=== PATIENT | male | born 1960 | race Caucasian/White ===

== ENCOUNTER 2016-09-09 19:31 | Emergency (ER) | payer BC ==
[~2016-09-09] VITALS: Ht 185.4 cm; Wt 132.0 kg
[~2016-09-09 19:31] MED LIST: ALLO100T PO; ASPI81CH CHEW; CYMB60CA PO; FENO48TA PO; GLIM1TAB PO; LORA-361 PO; LOSA25TA PO; METO25TA3 PO; PRAS10TA PO; PROT40TA PO; PROZ40CA PO; TRIA40P IA
[2016-09-09 19:36] VITALS: BP 141/76; PULSE 82; RESP 16; TEMP 98.3; O2SAT 97
--- NOTE | 2016-09-09 20:00 | PD ---
HPI Chief Complaint: Complaint Time Seen by Provider: 19:49 Travel History International Travel<30 days: No Contact w/Intl Traveler<30days: No Traveled to known affect area: No History of Present Illness HPI The patient is a 56-year-old male, frequent visitor to this emergency department , who states he found a tiny bug in his underwear this evening. He did not bring it in set it was very small and he did not think it looked like a tic. He has not been sexually active since 2012. He has had some slight groin itching. He does have a history of anxiety, bipolar disorder, depression, non- insulin-dependent diabetes, migraines and coronary artery disease. He states the bug looked dark and not like a bedbug. PFSH Past Medical History Hx Anticoagulant Therapy: No Arthritis: Yes (BL hips and knees) Asthma: No Autoimmune Disease: No Bipolar Disorder: Yes Anxiety: Yes Depression: Yes Heart Rhythm Problems: No Cancer: No Cardiac Catheterization: Yes Cardiovascular Problems: Yes ([place], STENTS) High Cholesterol: Yes Chemotherapy: No Chest Pain: Yes Congestive Heart Failure: No COPD: No Cerebrovascular Accident: No Coronary Artery Disease: Yes Diabetes: Yes Patient Takes Glucophage: Yes Diminished Hearing: No Endocrine: No Gastrointestinal Disorders: Yes (GERD) GERD: Yes Genitourinary: No Hepatitis: No Hiatal Hernia: Yes (Umbilical) Hypertension: Yes Immune Disorder: No Implanted Vascular Access Dvce: Yes Musculoskeletal: Yes (Neck pain) Neurologic: Yes (Neuropathy) Psychiatric: Yes (DEPRESSION) Reproductive: No Respiratory: Yes (PNAx2) Immunizations Current: No Migraines: Yes (once a month) Myocardial Infarction: Yes Seizures: No Thyroid Disease: No Ulcer: No ?: Not Past Surgical History Abdominal Surgery: Yes (Inguinal and umbilical hernia, gallbladder removed) AICD: No Body Medical Devices: cardiac stents Cardiac Surgery: Yes (five STENTS) Cholecystectomy: Yes Coronary Stent: Yes (X's 3) Ear Surgery: No Endocrine Surgery: No Eye Surgery: No Genitourinary Surgery: No Gynecologic Surgery: No Joint Replacement: No Oral Surgery: Yes (DENTAL EXTRACTION, tonsillectomy) Pacemaker: No Tonsillectomy: Yes Other Surgery: Yes (Cyst removed posterior neck) Family History Family Myocardial Infarction: Yes (brother ) Social History Alcohol Use: Yes (RARE) Tobacco Use: Yes (1 PPD) 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) Allergies-Medications (Allergen,Severity, Reaction): Coded Allergies: Lortab (Verified Allergy, Severe, Itching at high doses, 09/09/16) Penicillin (Verified Allergy, Severe, Anaphylaxis, 09/09/16) Codeine (Verified Allergy, Intermediate, Nose itches, 09/09/16) HMG-CoA Reductase Inhibitors (Verified Adverse Reaction, Severe, Back pain , muscle cramps, 09/09/16) Sulfa (Verified Adverse Reaction, Severe, Sores in mouth, 09/09/16) Reported Meds & Prescriptions Reported Meds & Active Scripts Active Effient (Prasugrel) 10 Mg Tab 10 Mg PO DAILY Metoprolol Tartrate 25 Mg Tab 25 Mg PO Q12HR Fenofibrate 48 Mg Tab 48 Mg PO DAILY Aspirin 81 Mg Chew 81 Mg CHEW DAILY Claritin (Loratadine) 10 Mg Tab 10 Mg PO DAILY Reported Allopurinol 100 Mg Tab Unknown Dose PO DAILY Losartan (Losartan Potassium) 25 Mg Tab Unknown Dose PO DAILY Prozac (Fluoxetine HCl) 40 Mg Cap 40 Cap PO DAILY Protonix (Pantoprazole Sodium) 40 Mg Tab 40 Mg PO DAILY Glimepiride 1 Mg Tab 1 Mg PO BID Take with breakfast or first main meal Cymbalta DR (Duloxetine HCl) 60 Mg Capdr 60 Mg PO DAILY Review of Systems Except as stated in HPI: all other systems reviewed are Neg Physical Exam Narrative GENERAL: Well-nourished, well-developed patient. SKIN: Warm and dry. The skin around the groin shows a folliculitis. There is one pustule there which may have been the result of a folliculitis initially but this appears to be a staph infection. It does not appear to be a bite. There is no evidence of scabies or pubic lice. HEAD: Normocephalic. EYES: No scleral icterus. No injection or drainage. NECK: Supple, trachea midline. No JVD or lymphadenopathy. CARDIOVASCULAR: Regular rate and rhythm without murmurs, gallops, or rubs. RESPIRATORY: Breath sounds equal bilaterally. No accessory muscle use. GASTROINTESTINAL: Abdomen soft, non-tender, nondistended. MUSCULOSKELETAL: No cyanosis, or edema. BACK: Nontender without obvious deformity. No CVA tenderness. Data Data Last Documented VS Vital Signs Date Time Temp Pulse Resp B/P Pulse Ox O2 Delivery O2 Flow Rate FiO2 09/09/16 19:36 98.3 82 16 141/76 97 MDM Medical Decision Making Medical Screen Exam Complete: Yes Emergency Medical Condition: Yes Medical Record Reviewed: Yes Differential Diagnosis Staph infection, scabies, bedbugs, pubic lice, neurodermatitis, conversion reaction, folliculitis Narrative Course The patient appears to have a folliculitis and I cannot see any evidence of any parasites. Plan: The patient is given a Betadine cleansing solution, he is to use 1 teaspoon and a large glass of water when he uses this. He can scrub his groin with this. Hopefully this will get rid of the staff and folliculitis problem. Diagnosis Primary Impression: Folliculitis barbae Additional Impression: Staphylococcal infection of skin Additional Instructions: Scrub once daily with this Betadine solution and the should get rid of the staff infection in the groin. Follow-up with her primary care physician next week. Med/Other Pt SpecificInfo: No Change to Meds Disposition: 01 DISCHARGE HOME Condition: Stable Mello Rush MD Sep 09, 2016 20:00
== END 2016-09-09 20:24 | disposition home or self-care (01) ==
LOC: PHED 19:31
DX: L73.8 Other specified follicular disorders (principal); L08.9 Local infection of the skin and subcutaneous tissue, unspecified; B95.8 Unspecified staphylococcus as the cause of diseases classified elsewhere; B85.3 Phthiriasis; E11.9 Type 2 diabetes mellitus without complications; I25.10 Atherosclerotic heart disease of native coronary artery without angina pectoris; I10 Essential (primary) hypertension; E78.00 Pure hypercholesterolemia, unspecified; F17.200 Nicotine dependence, unspecified, uncomplicated; Z79.84 Long term (current) use of oral hypoglycemic drugs; Z86.59 Personal history of other mental and behavioral disorders; Z86.79 Personal history of other diseases of the circulatory system; Z86.69 Personal history of other diseases of the nervous system and sense organs; Z87.39 Personal history of other diseases of the musculoskeletal system and connective tissue; Z87.19 Personal history of other diseases of the digestive system
CPT/HCPCS: 99282

== ENCOUNTER 2016-10-25 20:54 | Emergency (ER) | payer BC ==
[~2016-10-25] VITALS: Ht 185.4 cm; Wt 130.0 kg
[2016-10-25 21:35] VITALS: BP 125/93; PULSE 98; RESP 18; TEMP 98.6; O2SAT 96
[2016-10-25 22:26] LABS: BLOOD, URINE SMALL (NEG); GLUCOSE,URINE NEG (NEG); KETONE, URINE NEG (NEG); NITRITE,URINE NEG (NEG); PH, URINE 5.5 (5.0-8.5)
[2016-10-25] MEDS ORDERED: LOSA25TA PO (22:28)
[2016-10-25] MEDS ORDERED: ALLO100T PO (22:28)
[2016-10-25] MEDS ORDERED: METO25TA3 PO (22:28)
[2016-10-25] MEDS ORDERED: GLIM1TAB PO (22:28)
[2016-10-25 22:33] LABS: COMMENT (UR) CULT NOT INDICATED; CULTURE IF INDICATED CULT NOT INDICATED; METHOD OF COLLECTION VOIDED; RBC, URINE 0-3 /hpf (0-3); SQUAMOUS EPITHELIAL CELL URINE 0-2 /hpf (0-5); URINE COLOR YELLOW (YELLW/STRAW); WBC, URINE 0-2 /hpf (0-5)
--- NOTE | 2016-10-25 22:37 | PD ---
HPI Chief Complaint: Complaint Time Seen by Provider: 22:28 Travel History International Travel<30 days: No Contact w/Intl Traveler<30days: No Traveled to known affect area: No History of Present Illness HPI This 56-year-old male has been having intermittent left flank pain for the past week or so. He has never had a kidney stone with multiple family members do. For the past week he has been having very sharp severe left flank pain which is quite transient. In between attacks of pain in the [facility] [place] okay and is able to move around. There is no history of back injury. He does have a history of myocardial infarction, diabetes and gout. He is not having pain right now but at night he gets pain which causes him to cry in pain. It seems to get better when he gets up. PFSH Past Medical History Hx Anticoagulant Therapy: No Arthritis: Yes (BL hips and knees) Asthma: No Autoimmune Disease: No Bipolar Disorder: Yes Anxiety: Yes Depression: Yes Heart Rhythm Problems: No Cancer: No Cardiac Catheterization: Yes Cardiovascular Problems: Yes ([place], STENTS) High Cholesterol: Yes Chemotherapy: No Chest Pain: Yes Congestive Heart Failure: No COPD: No Cerebrovascular Accident: No Coronary Artery Disease: Yes Diabetes: Yes Diminished Hearing: No Endocrine: No Gastrointestinal Disorders: Yes (GERD) GERD: Yes Genitourinary: No Hepatitis: No Hiatal Hernia: Yes (Umbilical) Hypertension: Yes Immune Disorder: No Implanted Vascular Access Dvce: Yes Musculoskeletal: Yes (Neck pain) Neurologic: Yes (Neuropathy) Psychiatric: Yes (DEPRESSION) Reproductive: No Respiratory: Yes (PNAx2) Immunizations Current: No Migraines: Yes (once a month) Myocardial Infarction: Yes Seizures: No Thyroid Disease: No Ulcer: No Past Surgical History Abdominal Surgery: Yes (Inguinal and umbilical hernia, gallbladder removed) AICD: No Body Medical Devices: cardiac stents Cardiac Surgery: Yes (five STENTS) Cholecystectomy: Yes Coronary Stent: Yes (X's 3) Ear Surgery: No Endocrine Surgery: No Eye Surgery: No Genitourinary Surgery: No Gynecologic Surgery: No Joint Replacement: No Oral Surgery: Yes (DENTAL EXTRACTION, tonsillectomy) Pacemaker: No Tonsillectomy: Yes Other Surgery: Yes (Cyst removed posterior neck) Social History Alcohol Use: Yes (RARE) Tobacco Use: Yes (1 PPD) 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) Allergies-Medications (Allergen,Severity, Reaction): Coded Allergies: Lortab (Verified Allergy, Severe, Itching at high doses, 10/25/16) Penicillin (Verified Allergy, Severe, Anaphylaxis, 10/25/16) Codeine (Verified Allergy, Intermediate, Nose itches, 10/25/16) HMG-CoA Reductase Inhibitors (Verified Adverse Reaction, Severe, Back pain , muscle cramps, 10/25/16) Sulfa (Verified Adverse Reaction, Severe, Sores in mouth, 10/25/16) Reported Meds & Prescriptions Reported Meds & Active Scripts Active Effient (Prasugrel) 10 Mg Tab 10 Mg PO DAILY Fenofibrate 48 Mg Tab 48 Mg PO DAILY Aspirin 81 Mg Chew 81 Mg CHEW DAILY Reported Metoprolol Tartrate 25 Mg Tab 12.5 Mg PO BID Losartan (Losartan Potassium) 25 Mg Tab 25 Mg PO DAILY Glimepiride 1 Mg Tab 1 Mg PO DAILY Take with breakfast or first main meal Allopurinol 100 Mg Tab 100 Mg PO DAILY Prozac (Fluoxetine HCl) 40 Mg Cap 40 Cap PO DAILY Protonix (Pantoprazole Sodium) 40 Mg Tab 40 Mg PO DAILY Cymbalta DR (Duloxetine HCl) 60 Mg Capdr 60 Mg PO DAILY Review of Systems General / Constitutional: No: Fever, Chills Eyes: No: Diploplia, Blurred Vision HENT: No: Headaches, Vertigo Cardiovascular: No: Chest Pain or Discomfort, Palpitations Respiratory: No: Cough, Shortness of Breath Gastrointestinal: No: Nausea, Vomiting Genitourinary: Positive: Flank Pain, No: Urgency, Frequency Musculoskeletal: No: Myalgias Skin: No Rash Psychiatric: No: Anxiety Physical Exam Narrative GENERAL: Well-developed male SKIN: Warm and dry. HEAD: Atraumatic. Normocephalic. EYES: Pupils equal and round. No scleral icterus. No injection or drainage. ENT: No nasal bleeding or discharge. Mucous membranes pink and moist. NECK: Trachea midline. No JVD. CARDIOVASCULAR: Regular rate and rhythm. No murmur appreciated. RESPIRATORY: No accessory muscle use. Clear to auscultation. Breath sounds equal bilaterally. GASTROINTESTINAL: Abdomen soft, non-tender, nondistended. Hepatic and splenic margins not palpable. MUSCULOSKELETAL: No obvious deformities. No clubbing. No cyanosis. No edema. NEUROLOGICAL: Awake and alert. No obvious cranial nerve deficits. Motor grossly within normal limits. Normal speech. PSYCHIATRIC: Appropriate mood and affect; insight and judgment normal. Data Data Last Documented VS Vital Signs Date Time Temp Pulse Resp B/P Pulse Ox O2 Delivery O2 Flow Rate FiO2 10/25/16 22:20 16 10/25/16 21:35 98.6 98 125/93 96 Orders Urinalysis - C+S If Indicated (10/25/16 21:51) Ct Abd/Pel W/O Iv Contrast (10/25/16 22:28) Labs Laboratory Tests Test 10/25/16 21:40 Urine Collection Type VOIDED Urine Color YELLOW Urine Turbidity CLEAR Urine pH 5.5 Urine Specific [place] 1.021 Urine Protein NEG mg/dL Urine Glucose (UA) NEG mg/dL Urine Ketones NEG mg/dL Urine Occult Blood SMALL Urine Nitrite NEG Urine Bilirubin NEG Urine Leukocyte Esterase NEG Urine RBC 0-3 /hpf Urine WBC 0-2 /hpf Urine Squamous Epithelial 0-2 /hpf Cells Microscopic Urinalysis Comment CULT NOT INDICATED MDM Medical Decision Making Medical Screen Exam Complete: Yes Emergency Medical Condition: Yes Medical Record Reviewed: Yes Differential Diagnosis Differential includes renal colic, musculoskeletal pain, neuralgia Narrative Course Urinalysis is negative for blood. A CT scan does not show any kidney stones. There is some separation of the rectus muscles inferior to the umbilicus where he previously had an umbilical hernia repaired. This is an incidental finding and not related to the pain. Etiology of the pain has not been determined. It is a very sharp brief pain which I don't think would benefit from pain medication. He will be released Diagnosis Primary Impression: musculoskeletal flank pain Additional Instructions: Follow-up with your own medical doctor Disposition: 01 DISCHARGE HOME Condition: Stable Davin Turner MD Oct 25, 2016 22:37
--- NOTE | 2016-10-25 23:22 | RADHPO ---
EXAM DATE/TIME: 10/25/2016 22:47 [facility] COMPARISON: No previous studies available for comparison. INDICATIONS : Intermittent left flank pain. ORAL CONTRAST: No oral contrast ingested. RADIATION DOSE: 23.21 CTDIvol (mGy) MEDICAL HISTORY : Hypertension. Diabetes mellitus type 2. SURGICAL HISTORY : Cholecystectomy. Inguinal hernia repair.Umbilical hernia repair.CABG. ENCOUNTER: Initial ACUITY: 1 week PAIN SCALE: 0/10 LOCATION: Left flank TECHNIQUE: Volumetric scanning of the abdomen and pelvis was performed. Using automated exposure control and ad justment of the mA and/or kV according to patient size, radiation dose was kept as low as reasonably achievable to obtain optimal diagnostic quality images. FINDINGS: LOWER LUNGS: The visualized lower lungs are clear. LIVER: Homogeneous density without lesion for noncontrast technique. There is no dilation of the biliary tr ee. Hemoclips in the osman from prior cholecystectomy.. SPLEEN: Normal size without lesion. PANCREAS: Within normal limits. KIDNEYS: Normal in size and shape. There is no mass, stone, or hydronephrosis. The ureters are normal in dim ension without evidence of calcification. ADRENAL GLANDS: Within normal limits. VASCULAR: There is no aortic aneurysm. BOWEL/MESENTERY: The stomach, small bowel, and colon demonstrate no acute abnormality. Gas is seen in the lumen of th e appendix. There is no free intraperitoneal air or fluid. ABDOMINAL WALL: Multiple metallic screw anchors anterior mid abdominal wall prior umbilical hernia repair. Inferior to the umbilicus, there is separation of the rectus muscles measuring 3.8 cm. There is also mild [place] ration of the subcutaneous fat adjacent to the separation. No protrusion of bowel. RETROPERITONEUM: There is no lymphadenopathy. BLADDER: No wall thickening or mass. REPRODUCTIVE: Within normal limits. INGUINAL: There is no lymphadenopathy or hernia. MUSCULOSKELETAL: Within normal limits for patient age. CONCLUSION: 1. No calcified renal stones or hydronephrosis. 2. Separation of the rectus muscles inferior to the umbilicus with some induration of the superficial subcutaneous fat. Martin Quiroz MD on October 25, 2016 at 23:11 Board Certified Radiologist. This report was verified electronically.
[2016-10-25 23:30] VITALS: BP 150/85; PULSE 92; RESP 16; O2SAT 96
== END 2016-10-25 23:41 | disposition home or self-care (01) ==
LOC: PHED 20:54
DX: R10.9 Unspecified abdominal pain (principal); E11.9 Type 2 diabetes mellitus without complications; M10.9 Gout, unspecified; I25.2 Old myocardial infarction; I10 Essential (primary) hypertension; E78.00 Pure hypercholesterolemia, unspecified; F17.200 Nicotine dependence, unspecified, uncomplicated; Z79.84 Long term (current) use of oral hypoglycemic drugs; Z87.39 Personal history of other diseases of the musculoskeletal system and connective tissue; Z86.79 Personal history of other diseases of the circulatory system; Z87.19 Personal history of other diseases of the digestive system; Z86.69 Personal history of other diseases of the nervous system and sense organs; Z87.09 Personal history of other diseases of the respiratory system; Z86.59 Personal history of other mental and behavioral disorders
CPT/HCPCS: 74176; 81001

== ENCOUNTER 2017-01-31 11:25 | Emergency (ER) | payer SELFPAY ==
[~2017-01-31] VITALS: Ht 185.4 cm; Wt 128.0 kg
[~2017-01-31 11:25] MED LIST changes: -LORA-361 PO
[2017-01-31 11:34] VITALS: BP 156/92; PULSE 92; RESP 16; TEMP 98; O2SAT 95
[2017-01-31] MEDS ORDERED: SODIUM CHLOR 0.9% 1000 ML INJ 1,000 ML IV SCH (12:13)
[2017-01-31] MEDS ORDERED: FAMOTIDINE 20 MG/2 ML VIAL IV PUSH ONE (12:15)
[2017-01-31] MEDS ORDERED: ONDANSETRON HCL 4 MG/2 ML VIAL IVP ONE (12:15)
[2017-01-31] MEDS ORDERED: MORPHINE SULFATE 4 MG/ML INJ IV PUSH ONE (12:15)
[2017-01-31] MEDS ORDERED: SODIUM CHLORIDE 0.9% FLUSH 10 ML FLUSH IV FLUSH PRN (12:15)
[2017-01-31 12:50] LABS: AUTOMATED NEUTROPHIL # 5.5 TH/MM3 (1.8-7.7); BASOPHIL # 0.1 TH/MM3 (0-0.2); BASOPHIL % 1.8 % (0.0-2.0); EOSINOPHIL # 0.2 TH/MM3 (0-0.4); EOSINOPHIL % 2.8 % (0.0-4.0); HEMATOCRIT 45.3 % (39.0-51.0); HEMO FLAGS DIFF FINAL; LYMPH % 24.2 % (9.0-44.0); MEAN CELL VOLUME 88.9 FL (80.0-100.0); MEAN CORPUSCULAR HEMOGLOBIN 30.5 PG (27.0-34.0); MEAN CORPUSCULAR HGB CONC 34.4 % (32.0-36.0); MONO % 3.4 % (0.0-8.0); NEUT % 67.8 % (16.0-70.0); PLATELET COUNT 220 TH/MM3 (150-450); WHITE BLOOD COUNT 8.1 TH/MM3 (4.0-11.0)
[2017-01-31 13:00] LABS: CHLORIDE 104 MEQ/L (98-107); POTASSIUM 4.2 MEQ/L (3.5-5.1); SODIUM (NA) 139 MEQ/L (136-145)
[2017-01-31 13:04] LABS: ANION GAP 10 MEQ/L (5-15); BLOOD UREA NITROGEN 13 MG/DL (7-18)
[2017-01-31 13:06] LABS: APTT (PATIENT) 25.9 SEC (24.3-30.1); INTERNATIONAL NORMALIZED RATIO 0.9 RATIO
[2017-01-31 13:07] LABS: ALT (GPT) 53 U/L (12-78); AST (GOT) 34 U/L (15-37); GLOMERULAR FILTRATION RATE 77 ML/MIN (>89)
[2017-01-31 13:08] LABS: INDIRECT BILIRUBIN 0.4 MG/DL (0.0-0.8); TOTAL BILIRUBIN ADULT 0.5 MG/DL (0.2-1.0)
[2017-01-31 13:10] LABS: ALKALINE PHOSPHATASE 95 U/L (45-117)
[2017-01-31] MEDS ORDERED: IOHEXOL 350 MG/ML 10 ML VIAL (for RAD DIAG) IV ONE (13:26)
--- NOTE | 2017-01-31 13:59 | RADHPO ---
EXAM DATE/TIME: 01/31/2017 13:11 [facility] COMPARISON: CT ABDOMEN & PELVIS W CONTRAST, March 13, 2015, 20:11. INDICATIONS : Mid abdominal pain. Nausea, vomiting and diarrhea. IV CONTRAST: 85 cc Omnipaque 350 (iohexol) IV ORAL CONTRAST: No oral contrast ingested. RADIATION DOSE: 22.20 CTDIvol (mGy) MEDICAL HISTORY : Diabetes mellitus type 2. Myocardial infarction. Gastroesophageal reflux disease.Hypertension. SURGICAL HISTORY : None. ENCOUNTER: Initial ACUITY: 2 months PAIN SCALE: 4/10 LOCATION: Mid abdomen TECHNIQUE: Volumetric scanning of the abdomen and pelvis was performed. Using automated exposure control and ad justment of the mA and/or kV according to patient size, radiation dose was kept as low as reasonably achievable to obtain optimal diagnostic quality images. FINDINGS: The liver is enlarged. Diffuse fatty infiltration of the liver is noted. No focal hepatic mass is not ed. No biliary ductal dilatation is noted. The gallbladder has been resected. The spleen is normal. T he pancreas is also normal. The adrenal glands are normal bilaterally. There is a simple cyst within the upper pole of left kidney measuring 2.1 cm. There is no solid mass or hydronephrosis. No calcifie d renal calculus is noted. The abdominal aorta is calcified but not aneurysmally dilated. The inferio r vena cava is normal. There is no para-aortic, retroperitoneal or mesenteric lymphadenopathy. Small recurrent midline ventral abdominal wall hernia is noted and contains only fat. Uncomplicated colonic diverticulosis is noted. The appendix is normal. The urinary bladder is unremarkable. The prostate g land is normal. Scattered atelectasis is noted within the lung bases posteriorly. Degenerative change s and scoliosis of the thoraco-lumbar spine are noted. CONCLUSION: 1. Small recurrent midline ventral abdominal wall hernia containing only fat. 2. Enlarged fatty liver. 3. Uncomplicated colonic diverticulosis. 4. 2.1 cm upper pole left renal cyst. 5. Degenerative changes and scoliosis of the thoracolumbar spine. 6. Scattered bibasilar atelectasis. Yosef Pulido MD on January 31, 2017 at 13:40 Board Certified Radiologist. This report was verified electronically.
[2017-01-31 14:00] VITALS: BP 143/70; PULSE 75; RESP 18; O2SAT 95
[2017-01-31] MEDS ORDERED: METF500T PO (14:41)
--- NOTE | 2017-01-31 14:41 | PD ---
HPI Chief Complaint: Abdominal Pain Time Seen by Provider: 12:00 Travel History International Travel<30 days: No Contact w/Intl Traveler<30days: No Traveled to known affect area: No History of Present Illness HPI Patient is a 56-year-old male comes in complaining of abdominal pain. He says he lost his job 3 months ago, and has lost his health insurance. Thus, he has not had his diabetes her blood pressure medications. He says the pain is in the middle of his abdomen, and has been going on for 8 weeks. He's had occasional nausea, vomiting occasionally. He denies diarrhea. He has not had any blood in his stool. He denies fever or chills. He does take Protonix, and has been taking extra Protonix, which she says has helped a little bit. He says food usually makes the pain worse. He also reports vomiting after eating. PFSH Past Medical History Hx Anticoagulant Therapy: No Arthritis: Yes (BL hips and knees) Asthma: No Autoimmune Disease: No Bipolar Disorder: Yes Anxiety: Yes Depression: Yes Heart Rhythm Problems: No Cancer: No Cardiac Catheterization: Yes Cardiovascular Problems: Yes (STENTS) High Cholesterol: Yes Chemotherapy: No Chest Pain: Yes Congestive Heart Failure: No COPD: No Cerebrovascular Accident: No Coronary Artery Disease: Yes Diabetes: Yes Patient Takes Glucophage: No Diminished Hearing: No Endocrine: No Gastrointestinal Disorders: Yes (GERD) GERD: Yes Gout: Yes Genitourinary: No Hepatitis: No Hiatal Hernia: Yes (Umbilical) Hypertension: Yes Immune Disorder: No Implanted Vascular Access Dvce: Yes Musculoskeletal: Yes (Neck pain) Neurologic: Yes (Neuropathy,BILAT FEET AND HIPS) Psychiatric: Yes (DEPRESSION) Reproductive: No Respiratory: Yes (PNAx2) Immunizations Current: No Migraines: Yes (once a month) Myocardial Infarction: Yes (07/2016) Seizures: No Thyroid Disease: No Ulcer: No ?: Not Past Surgical History Abdominal Surgery: Yes (Inguinal and umbilical hernia, gallbladder removed) AICD: No Body Medical Devices: cardiac stents Cardiac Surgery: Yes (five STENTS) Cholecystectomy: Yes Coronary Stent: Yes (X's 3) Ear Surgery: No Endocrine Surgery: No Eye Surgery: No Genitourinary Surgery: No Gynecologic Surgery: No Joint Replacement: No Oral Surgery: Yes (DENTAL EXTRACTION, tonsillectomy) Pacemaker: No Tonsillectomy: Yes Other Surgery: Yes (Cyst removed posterior neck) Family History Family Myocardial Infarction: Yes (brother ) Social History Alcohol Use: Yes (VERY RARE) Tobacco Use: Yes (1 PPD) 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) Allergies-Medications (Allergen,Severity, Reaction): Coded Allergies: Lortab (Verified Allergy, Severe, Itching at high doses, 01/31/17) Penicillin (Verified Allergy, Severe, Anaphylaxis, 01/31/17) Codeine (Verified Allergy, Intermediate, Nose itches, 01/31/17) HMG-CoA Reductase Inhibitors (Verified Adverse Reaction, Severe, Back pain , muscle cramps, 01/31/17) Sulfa (Verified Adverse Reaction, Severe, Sores in mouth, 01/31/17) Reported Meds & Prescriptions Reported Meds & Active Scripts Active Effient (Prasugrel) 10 Mg Tab 10 Mg PO DAILY Fenofibrate 48 Mg Tab 48 Mg PO DAILY Aspirin 81 Mg Chew 81 Mg CHEW DAILY Reported Metoprolol Tartrate 25 Mg Tab 12.5 Mg PO BID Losartan (Losartan Potassium) 25 Mg Tab 25 Mg PO DAILY Glimepiride 1 Mg Tab 1 Mg PO DAILY Take with breakfast or first main meal Allopurinol 100 Mg Tab 100 Mg PO DAILY Prozac (Fluoxetine HCl) 40 Mg Cap 40 Cap PO DAILY Protonix (Pantoprazole Sodium) 40 Mg Tab 40 Mg PO DAILY Cymbalta DR (Duloxetine HCl) 60 Mg Capdr 60 Mg PO DAILY Review of Systems Except as stated in HPI: all other systems reviewed are Neg General / Constitutional: No: Fever, Chills HENT: No: Headaches, Lightheadedness Cardiovascular: No: Chest Pain or Discomfort Respiratory: No: Shortness of Breath Gastrointestinal: Positive: Nausea, Vomiting, Abdominal Pain Musculoskeletal: No: Myalgias, Edema, Pain Neurologic: Positive: Weakness, No: Dizziness Physical Exam Narrative GENERAL: Awake and alert, in no acute distress. SKIN: Focused skin assessment warm/dry. HEAD: Atraumatic. Normocephalic. EYES: Pupils equal and round. No scleral icterus. ENT: Mucous membranes pink and moist. NECK: Trachea midline. No JVD. CARDIOVASCULAR: Regular rate and rhythm. No murmur appreciated. RESPIRATORY: No accessory muscle use. Clear to auscultation. Breath sounds equal bilaterally. GASTROINTESTINAL: Abdomen soft, nondistended. Tender to palpation in the mid epigastric area. No rebound or guarding. MUSCULOSKELETAL: No obvious deformities. No clubbing. No cyanosis. No edema. NEUROLOGICAL: Awake and alert. No obvious cranial nerve deficits. Motor grossly within normal limits. Normal speech. PSYCHIATRIC: Appropriate mood and affect; insight and judgment normal. Data Data Last Documented VS Vital Signs Date Time Temp Pulse Resp B/P Pulse Ox O2 Delivery O2 Flow Rate FiO2 01/31/17 14:00 75 18 143/70 95 01/31/17 11:34 98.0 Orders Basic Metabolic Panel (Bmp) (01/31/17 12:13) Complete Blood Count With Diff (01/31/17 12:13) Lipase (01/31/17 12:13) Prothrombin Time / Inr (Pt) (01/31/17 12:13) Act Partial Throm Time (Ptt) (01/31/17 12:13) Ct Abd/Pel W Iv Contrast(Rout) (01/31/17 12:13) Iv Access Insert/Monitor (01/31/17 12:13) Ecg Monitoring (01/31/17 12:13) Oximetry (01/31/17 12:13) Morphine Inj (Morphine Inj) (01/31/17 12:15) Ondansetron Inj (Zofran Inj) (01/31/17 12:15) Sodium Chlor 0.9% 1000 Ml Inj (Ns 1000 M (01/31/17 12:13) Sodium Chloride 0.9% Flush (Ns Flush) (01/31/17 12:15) Electrocardiogram (01/31/17 12:13) Famotidine Inj (Pepcid Inj) (01/31/17 12:15) Troponin I (01/31/17 12:13) Hepatic Functional Panel (01/31/17 12:13) Iohexol 350 Inj (Omnipaque 350 Inj) (01/31/17 13:26) Labs Laboratory Tests Test 01/31/17 12:45 White Blood Count 8.1 TH/MM3 Red Blood Count 5.10 MIL/MM3 Hemoglobin 15.6 GM/DL Hematocrit 45.3 % Mean Corpuscular Volume 88.9 FL Mean Corpuscular Hemoglobin 30.5 PG Mean Corpuscular Hemoglobin 34.4 % Concent Red Cell Distribution Width 12.0 % Platelet Count 220 TH/MM3 Mean Platelet Volume 7.3 FL Neutrophils (%) (Auto) 67.8 % Lymphocytes (%) (Auto) 24.2 % Monocytes (%) (Auto) 3.4 % Eosinophils (%) (Auto) 2.8 % Basophils (%) (Auto) 1.8 % Neutrophils # (Auto) 5.5 TH/MM3 Lymphocytes # (Auto) 2.0 TH/MM3 Monocytes # (Auto) 0.3 TH/MM3 Eosinophils # (Auto) 0.2 TH/MM3 Basophils # (Auto) 0.1 TH/MM3 CBC Comment DIFF FINAL Differential Comment Prothrombin Time 10.0 SEC Prothromb Time International 0.9 RATIO Ratio Activated Partial 25.9 SEC Thromboplast Time Sodium Level 139 MEQ/L Potassium Level 4.2 MEQ/L Chloride Level 104 MEQ/L Carbon Dioxide Level 25.0 MEQ/L Anion Gap 10 MEQ/L Blood Urea Nitrogen 13 MG/DL Creatinine 1.00 MG/DL Estimat Glomerular Filtration 77 ML/MIN Rate Random Glucose 261 MG/DL Calcium Level 8.9 MG/DL Total Bilirubin 0.5 MG/DL Direct Bilirubin 0.1 MG/DL Indirect Bilirubin 0.4 MG/DL Aspartate Amino Transf 34 U/L (AST/SGOT) Alanine Aminotransferase 53 U/L (ALT/SGPT) Alkaline Phosphatase 95 U/L Troponin I LESS THAN 0.02 NG/ML Total Protein 7.2 GM/DL Albumin 3.8 GM/DL Lipase 186 U/L MDM Medical Decision Making Medical Screen Exam Complete: Yes Emergency Medical Condition: Yes Medical Record Reviewed: Yes Differential Diagnosis GERD versus gastritis versus pancreatitis versus ACS (unlikely) versus hyperglycemia Narrative Course Patient is a 56-year-old male who comes in complaining of abdominal pain. Exam shows tenderness and midepigastric area. IV established, labs sent. Labs show a glucose of 261, no other acute abnormalities. CT abdomen and pelvis performed shows no acute abnormalities. Last 24 hours Impressions Abdomen/Pelvis CT 01/31/17 1213 Signed Impressions: Service Date/Time: January 13:11 - CONCLUSION: 1. Small recurrent midline ventral abdominal wall hernia containing only fat. 2. Enlarged fatty liver. 3. Uncomplicated colonic diverticulosis. 4. 2.1 cm upper pole left renal cyst. 5. Degenerative changes and scoliosis of the thoracolumbar spine. 6. Scattered bibasilar atelectasis. Yosef Pulido MD Patient given GI cocktail and morphine. He reports feeling a little better. Patient offered metformin, since it is free of [employer]. He says he has taken this before, but did not like the side effect of the diarrhea, so he was changed to glyburide. He cannot afford the glyburide at this time, so he would like to try the metformin again. He is advised follow-up at the community clinic. Advised to return to the ED as needed for any worsening symptoms. Advised to try [id number] antacids and avoid spicy foods as well as alcohol and cigarettes. Diagnosis Primary Impression: GERD (gastroesophageal reflux disease) Qualified Code: K21.9 - Gastroesophageal reflux disease without esophagitis Additional Impression: Hyperglycemia due to type 2 diabetes mellitus Qualified Code: E11.65 - Type 2 diabetes mellitus with hyperglycemia, without long-term current use of insulin Referrals: [facility] call for appointment [facility] call for appointment Patient Instructions: Diabetic Hyperglycemia (ED), Gastroesophageal Reflux Disease (ED), General Instructions Additional Instructions: Avoid spicy foods, peppers, tomatoes, caffeine, alcohol, cigarettes. Follow up in the community clinic. Try Metformin for your diabetes. Return as needed to the ED for any worsening symptoms. Scripts Metformin 500 Mg [id number] Mg PO BIDPC #60 TAB Ref 0 With meals Prov:Macrina Enriquez MD 01/31/17 Disposition: 01 DISCHARGE HOME Condition: Stable Macrina Enriquez MD Jan 31, 2017 14:41
--- NOTE | 2017-02-01 22:56 | EKG ---
Date Performed: 01/31/2017 Time Performed: 12:20:41 PTAGE: 56 years EKG: Sinus rhythm INDETERMINATE AXIS RIGHT BUNDLE BRANCH BLOCK ABNORMAL ECG PREVIOUS TRACING : 08/07/2016 05.27 DOCTOR: Wojciech Tijerina Interpretating Date/Time 02/01/2017 22:54:41
== END 2017-01-31 14:54 | disposition home or self-care (01) ==
LOC: PHEFT 11:25
DX: K21.9 Gastro-esophageal reflux disease without esophagitis (principal); E11.65 Type 2 diabetes mellitus with hyperglycemia; Z79.4 Long term (current) use of insulin; I25.2 Old myocardial infarction; I10 Essential (primary) hypertension; I25.10 Atherosclerotic heart disease of native coronary artery without angina pectoris; E78.00 Pure hypercholesterolemia, unspecified
CPT/HCPCS: 74177; 80048; 80076; 83690; 84484; 85025; 85610; 85730; 93005; 96361; 96374; 96375; 99285; J2270; J2405; J7030; Q9967

== ENCOUNTER 2017-07-03 10:04 | Emergency (ER) | payer SELFPAY ==
[~2017-07-03 10:04] MED LIST changes: +ASPI-516 CHEW; -ASPI81CH CHEW; +METF500T PO
[2017-07-03] MEDS ORDERED: ASPI-183 PO (12:37)
[2017-07-03] MEDS ORDERED: METF1000 PO (12:37)
[2017-07-03] MEDS ORDERED: XARE15TA PO (12:37)
[2017-07-03] MEDS ORDERED: CEPH-460 PO (12:56)
[2017-07-03] MEDS ORDERED: BACT800T5 PO (12:56)
== END 2017-07-03 11:17 | disposition left against medical advice (07) ==
LOC: NED 10:04
DX: Z53.21 Procedure and treatment not carried out due to patient leaving prior to being seen by health care provider (principal)

== ENCOUNTER 2017-07-03 12:02 | Emergency (ER) | payer SELFPAY ==
[~2017-07-03] VITALS: Ht 185.4 cm; Wt 122.0 kg
[2017-07-03 12:14] VITALS: BP 159/72; PULSE 102; RESP 20; TEMP 97.9; O2SAT 98
[2017-07-03] MEDS ORDERED: XARE15TA PO (12:37)
[2017-07-03] MEDS ORDERED: ASPI-183 PO (12:37)
[2017-07-03] MEDS ORDERED: METF1000 PO (12:37)
[2017-07-03] MEDS ORDERED: BACT800T5 PO (12:56)
[2017-07-03] MEDS ORDERED: CEPH-460 PO (12:56)
--- NOTE | 2017-07-03 12:56 | PD ---
HPI Chief Complaint: Skin Problem Time Seen by Provider: 12:37 Travel History International Travel<30 days: No Contact w/Intl Traveler<30days: No Traveled to known affect area: No History of Present Illness HPI This is a 57-year-old male who presents to the emergency department having had a CABG one month ago who presents to the emergency department with 1 week of swelling, redness and some scant drainage from his graft harvest sites on his left arm and his right leg, constant, moderate severity, worsening throughout the week. He denies any fevers or chills. He does have a history of diabetes. PFSH Past Medical History Hx Anticoagulant Therapy: No Arthritis: Yes (BL hips and knees) Asthma: No Autoimmune Disease: No Bipolar Disorder: Yes Anxiety: Yes Depression: Yes Heart Rhythm Problems: No Cancer: No Cardiac Catheterization: Yes Cardiovascular Problems: Yes (STENTS 5 VESSEL BYPASS) High Cholesterol: Yes Chemotherapy: No Chest Pain: Yes Congestive Heart Failure: No COPD: No Cerebrovascular Accident: No Coronary Artery Disease: Yes Diabetes: Yes Patient Takes Glucophage: No Diminished Hearing: No Endocrine: No Gastrointestinal Disorders: Yes (GERD) GERD: Yes Gout: Yes Genitourinary: No Hepatitis: No Hiatal Hernia: Yes (Umbilical) Hypertension: Yes Immune Disorder: No Implanted Vascular Access Dvce: Yes Musculoskeletal: Yes (Neck pain) Neurologic: Yes (Neuropathy,BILAT FEET AND HIPS) Psychiatric: Yes (DEPRESSION) Reproductive: No Respiratory: Yes (PNAx2) Immunizations Current: No Migraines: Yes Myocardial Infarction: Yes (07/2016) Seizures: No Thyroid Disease: No Ulcer: No Tetanus Vaccination: < 5 Years Influenza Vaccination: No Past Surgical History Abdominal Surgery: Yes (Inguinal and umbilical hernia) AICD: No Body Medical Devices: cardiac stents Cardiac Surgery: Yes (5 stents) Cholecystectomy: Yes Coronary Artery Bypass Graft: Yes (x1) Coronary Stent: Yes Ear Surgery: No Endocrine Surgery: No Eye Surgery: No Genitourinary Surgery: No Gynecologic Surgery: No Joint Replacement: No Oral Surgery: Yes Pacemaker: No Tonsillectomy: Yes Other Surgery: Yes (Cyst removed posterior neck) Family History Family Myocardial Infarction: Yes (brother ) Social History Alcohol Use: Yes (VERY RARE) Tobacco Use: No ("QUIT 05/19/17") Substance Use: No (HX of) Allergies-Medications (Allergen,Severity, Reaction): Coded Allergies: acetaminophen (Unverified Allergy, Severe, Itching at high doses, 07/03/17 ) hydrocodone (Unverified Allergy, Severe, Itching at high doses, 07/03/17) penicillin G (Unverified Allergy, Severe, Anaphylaxis, 07/03/17) codeine (Unverified Allergy, Intermediate, Nose itches, 07/03/17) Sulfa (Sulfonamide Antibiotics) (Unverified Adverse Reaction, Severe, Sores in mouth, 07/03/17) amlodipine (Unverified Adverse Reaction, Severe, Back pain, muscle cramps , 07/03/17) atorvastatin (Unverified Adverse Reaction, Severe, Back pain, muscle cramps, 07/03/17) pravastatin (Unverified Adverse Reaction, Severe, Back pain, muscle cramps , 07/03/17) simvastatin (Unverified Adverse Reaction, Severe, Back pain, muscle cramps , 07/03/17) Reported Meds & Prescriptions Reported Meds & Active Scripts Active Reported Aspirin 325 Mg Tab 325 Mg PO DAILY Xarelto (Rivaroxaban) 15 Mg Tab 15 Mg PO Q12HR Metformin (Metformin HCl) 1,000 Mg Tab 1,000 Mg PO BIDPC Metoprolol Tartrate 25 Mg Tab 25 Mg PO BID Allopurinol 100 Mg Tab 100 Mg PO DAILY Protonix (Pantoprazole Sodium) 40 Mg Tab 40 Mg PO DAILY Cymbalta DR (Duloxetine HCl) 60 Mg Capdr 60 Mg PO DAILY Review of Systems Except as stated in HPI: all other systems reviewed are Neg Physical Exam Narrative GENERAL:Well appearing, no acute distress SKIN: 2 cm area of erythema and induration on the proximal aspect of the patient 's left forearm graft harvest site with some induration, 2 cm area of erythema and warmth at the distal aspect of the patient's graft harvest site on the left forearm with no fluctuance. No erythema or warmth of the surgical scar between these 2 points. 3 cm area of warmth and erythema with some induration along the proximal aspect of the patient's right lower extremity graft harvest site lead: Atraumatic. Normocephalic. ENT: No nasal bleeding or discharge. Moist mucous membranes MUSCULOSKELETAL: No obvious deformities. No clubbing. No cyanosis. No edema. NEUROLOGICAL: Awake and alert. No obvious cranial nerve deficits. Motor grossly within normal limits. Normal speech. PSYCHIATRIC: Appropriate mood and affect; insight and judgment normal. Data Data Last Documented VS Vital Signs Date Time Temp Pulse Resp B/P (MAP) Pulse Ox O2 Delivery O2 Flow Rate FiO2 07/03/17 12:14 97.9 102 20 159/72 (101) 98 MDM Medical Decision Making Medical Screen Exam Complete: Yes Emergency Medical Condition: Yes Differential Diagnosis Cellulitis, wound infection, abscess, sepsis Narrative Course This is a nontoxic-appearing 57-year-old male who has a history of a recent CABG who presents to the emergency department with superficial infections of his graft harvest sites on his extremities. They appear very localized. He is not febrile. I think he is appropriate for outpatient treatment with warm compresses and oral antibiotic therapy. He does have follow-up with [facility]. I told him to come back to the emergency department in 2 days of his symptoms worsen. Diagnosis Primary Impression: Wound infection Patient Instructions: General Instructions Additional Instructions: If you develop fever, increasing redness, warmth, or spreading of your infection , or severe pain return to the emergency department immediately as you may require antibiotics through your IV. Complete your course of antibiotics as prescribed. Med/Other Pt SpecificInfo: Prescription(s) given Scripts Sulfamethoxazole-Trimethoprim (Bactrim DS) 800-160 Mg Tab 1 TAB PO BID for Infection, #20 TAB 0 Refills Prov: Lacie Kingston MD 07/03/17 Cephalexin (Keflex) 500 Mg Cap 500 MG PO Q12H for Infection for 7 Days, #20 CAP 0 Refills Prov: Lacie Kingston MD 07/03/17 Disposition: 01 DISCHARGE HOME Condition: Stable Lacie Kingston MD Jul 03, 2017 12:56
== END 2017-07-03 13:09 | disposition home or self-care (01) ==
LOC: PHED 12:02
DX: T81.4XXA Infection following a procedure, initial encounter (principal); Y83.2 Surgical operation with anastomosis, bypass or graft as the cause of abnormal reaction of the patient, or of later complication, without mention of misadventure at the time of the procedure
CPT/HCPCS: 99283

== ENCOUNTER 2017-07-07 10:48 | Emergency (ER) | payer SELFPAY ==
[~2017-07-07] VITALS: Ht 185.4 cm; Wt 155.0 kg
[~2017-07-07 10:48] MED LIST changes: +ASPI-183 PO; -ASPI-516 CHEW; +BACT800T5 PO; +CEPH-460 PO; -FENO48TA PO; -GLIM1TAB PO; -LOSA25TA PO; +METF1000 PO; -METF500T PO; -PRAS10TA PO; -PROZ40CA PO; +XARE15TA PO
[2017-07-07 10:50] VITALS: BP 147/81; PULSE 90; RESP 18; TEMP 97.5; O2SAT 99
--- NOTE | 2017-07-07 11:53 | PD ---
Data Data Last Documented VS Vital Signs Date Time Temp Pulse Resp B/P (MAP) Pulse Ox O2 Delivery O2 Flow Rate FiO2 07/07/17 10:50 97.5 90 18 147/81 (103) 99 Room Air MDM Supervised Visit with TRI: No Narrative Course This is a patient who [place] I saw him several days ago in the setting of some inflammation at the sites of his graft donor sites. I put him on Keflex and Bactrim. The skin areas look much better but today he is coming in because he has been having persistent chest pain, worse in the evenings. I will order basic cardiac enzymes and a chest x-ray and I think he requires evaluation in a medical pod. Lacie Kingston MD Jul 07, 2017 11:53
[2017-07-07] MEDS ORDERED: SODIUM CHLORIDE 0.9% FLUSH 10 ML FLUSH IVF PRN (12:00)
[2017-07-07 12:07] VITALS: O2SAT 100
[2017-07-07 12:20] VITALS: BP 129/73; PULSE 82; RESP 22; O2SAT 98
--- NOTE | 2017-07-07 12:28 | RADRPT ---
EXAM DATE/TIME: 07/07/2017 12:11 [facility] COMPARISON: CHEST SINGLE AP, August 05, 2016, 11:14. INDICATIONS : Left side chest pain post CABG MEDICAL HISTORY : Cardiovascular disease. SURGICAL HISTORY : CABG. ENCOUNTER: Initial ACUITY: 1 day PAIN SCORE: 5/10 LOCATION: Left chest FINDINGS: Single AP view of the chest. Median sternotomy wires. The lungs are clear. Cardiomediastinal silhouet te within normal limits. No evidence of pleural effusion or pneumothorax. CONCLUSION: No acute cardiopulmonary disease identified. Waldemar Christianson MD on July 07, 2017 at 12:26 Board Certified Radiologist. This report was verified electronically.
[2017-07-07 12:43] LABS: BASOPHIL # 0.1 TH/MM3 (0-0.2); BASOPHIL % 1.3 % (0.0-2.0); EOSINOPHIL # 0.5 TH/MM3 (0-0.4); EOSINOPHIL % 6.8 % (0.0-4.0); HEMATOCRIT 38.5 % (39.0-51.0); HEMO FLAGS DIFF FINAL; LYMPH % 31.3 % (9.0-44.0); LYMPHOCYTE # 2.3 TH/MM3 (1.0-4.8); MEAN CELL VOLUME 88.4 FL (80.0-100.0); MEAN CORPUSCULAR HEMOGLOBIN 29.3 PG (27.0-34.0); MEAN CORPUSCULAR HGB CONC 33.2 % (32.0-36.0); MONO % 6.5 % (0.0-8.0); NEUT % 54.1 % (16.0-70.0); PLATELET COUNT 259 TH/MM3 (150-450); RED BLOOD COUNT 4.36 MIL/MM3 (4.50-5.90); RED CELL DISTRIBUTION WIDTH 13.8 % (11.6-17.2); WHITE BLOOD COUNT 7.4 TH/MM3 (4.0-11.0)
--- NOTE | 2017-07-07 12:44 | PD ---
HPI Chief Complaint: Medical Clearance Time Seen by Provider: 12:20 Travel History International Travel<30 days: No Contact w/Intl Traveler<30days: No Traveled to known affect area: No History of Present Illness HPI 57-year-old male complains of chest pain. Patient states that he started having chest pain 5 days ago. Patient states the pain intermittent pain sharp pain localized to left anterior chest wall. Patient denies any pain radiation. Patient denies palpitation nausea or diaphoresis. Patient denies any fever chills coughing congestion. Patient status post CABG 5 a month ago. Patient was seen in emergency room recently for local wound infection on the left arm. Patient is on Keflex and Bactrim DS. Patient states that the wounds get better. Patient has history hypertension, diabetes, high lipedema. Patient quit smoking a month ago. Patient has family history of heart disease. Patient is on Xarelto and aspirin 325 mg daily. Patient states that the chest pain is not associate with exertion. On a scale of 1-10 the pain is a 3. PFSH Past Medical History Hx Anticoagulant Therapy: Yes (xarelto, 325 asa) Arthritis: Yes (BL hips and knees) Asthma: No Autoimmune Disease: No Bipolar Disorder: Yes Anxiety: Yes Depression: Yes Heart Rhythm Problems: No Cancer: No Cardiac Catheterization: Yes Cardiovascular Problems: Yes (STENTS 5 VESSEL BYPASS) High Cholesterol: Yes Chemotherapy: No Chest Pain: Yes Congestive Heart Failure: No COPD: No Cerebrovascular Accident: No Coronary Artery Disease: Yes Diabetes: Yes Patient Takes Glucophage: Yes Diminished Hearing: No Endocrine: No Gastrointestinal Disorders: Yes (GERD) GERD: Yes Gout: Yes Genitourinary: No Hepatitis: No Hiatal Hernia: Yes (Umbilical) Hypertension: Yes Immune Disorder: No Implanted Vascular Access Dvce: Yes Musculoskeletal: Yes (Neck pain) Neurologic: Yes (Neuropathy,BILAT FEET AND HIPS) Psychiatric: Yes (DEPRESSION) Reproductive: No Respiratory: Yes (PNAx2) Immunizations Current: No Migraines: Yes Myocardial Infarction: Yes (07/2016) Seizures: No Thyroid Disease: No Ulcer: No Tetanus Vaccination: < 5 Years Influenza Vaccination: No Past Surgical History Abdominal Surgery: Yes (Inguinal and umbilical hernia) AICD: No Body Medical Devices: cardiac stents Cardiac Surgery: Yes (5 stents) Cholecystectomy: Yes Coronary Artery Bypass Graft: Yes (x1) Coronary Stent: Yes Oral Surgery: Yes Pacemaker: No Tonsillectomy: Yes Other Surgery: Yes (Cyst removed posterior neck) Family History Family Myocardial Infarction: Yes (brother ) Social History Alcohol Use: Yes (VERY RARE) Tobacco Use: No ("QUIT 05/19/17") Substance Use: No (HX of) Allergies-Medications (Allergen,Severity, Reaction): Coded Allergies: acetaminophen (Unverified Allergy, Severe, Itching at high doses, 07/07/17 ) hydrocodone (Unverified Allergy, Severe, Itching at high doses, 07/07/17) penicillin G (Unverified Allergy, Severe, Anaphylaxis, 07/07/17) codeine (Unverified Allergy, Intermediate, Nose itches, 07/07/17) Sulfa (Sulfonamide Antibiotics) (Unverified Adverse Reaction, Severe, Sores in mouth, 07/07/17) amlodipine (Unverified Adverse Reaction, Severe, Back pain, muscle cramps , 07/07/17) atorvastatin (Unverified Adverse Reaction, Severe, Back pain, muscle cramps, 07/07/17) pravastatin (Unverified Adverse Reaction, Severe, Back pain, muscle cramps , 07/07/17) simvastatin (Unverified Adverse Reaction, Severe, Back pain, muscle cramps , 07/07/17) Reported Meds & Prescriptions Reported Meds & Active Scripts Active Bactrim DS (Sulfamethoxazole-Trimethoprim) 800-160 Mg Tab 1 Tab PO BID Keflex (Cephalexin) 500 Mg Cap 500 Mg PO Q12H 7 Days Reported Aspirin 325 Mg Tab 325 Mg PO DAILY Xarelto (Rivaroxaban) 15 Mg Tab 15 Mg PO Q12HR Metformin (Metformin HCl) 1,000 Mg Tab 1,000 Mg PO BIDPC Metoprolol Tartrate 25 Mg Tab 25 Mg PO BID Allopurinol 100 Mg Tab 100 Mg PO DAILY Protonix (Pantoprazole Sodium) 40 Mg Tab 40 Mg PO DAILY Cymbalta DR (Duloxetine HCl) 60 Mg Capdr 60 Mg PO DAILY Review of Systems General / Constitutional: No: Fever Eyes: No: Visual changes HENT: No: Headaches Cardiovascular: Positive: Chest Pain or Discomfort Respiratory: No: Shortness of Breath Gastrointestinal: No: Abdominal Pain Genitourinary: No: Dysuria Musculoskeletal: No: Pain Skin: No Rash Neurologic: No: Weakness Psychiatric: No: Depression Endocrine: No: Polydipsia Hematologic/Lymphatic: No: Easy Bruising Physical Exam Narrative GENERAL: Well-nourished, well-developed patient. SKIN: Focused skin assessment warm/dry. HEAD: Normocephalic. EYES: No scleral icterus. No injection or drainage. NECK: Supple, trachea midline. No JVD or lymphadenopathy. CARDIOVASCULAR: Regular rate and rhythm without murmurs, gallops, or rubs. RESPIRATORY: Breath sounds equal bilaterally. No accessory muscle use. GASTROINTESTINAL: Abdomen soft, non-tender, nondistended. MUSCULOSKELETAL: No cyanosis, or edema. Healing wound on the left arm. BACK: Nontender without obvious deformity. No CVA tenderness. Neurologic exam normal. Data Data Last Documented VS Vital Signs Date Time Temp Pulse Resp B/P (MAP) Pulse Ox O2 Delivery O2 Flow Rate FiO2 07/07/17 12:20 82 22 129/73 (91) 98 Room Air 07/07/17 10:50 97.5 Orders Orders Electrocardiogram (07/07/17 11:54) Complete Blood Count With Diff (07/07/17 11:54) Comprehensive Metabolic Panel (07/07/17 11:54) Troponin I (07/07/17 11:54) Chest, Single Ap (07/07/17 11:54) Ecg Monitoring (07/07/17 11:54) Bilateral Bp Monitoring (07/07/17 11:54) Iv Access Insert/Monitor (07/07/17 11:54) Oximetry (07/07/17 11:54) Oxygen Administration (07/07/17 11:54) Sodium Chloride 0.9% Flush (Ns Flush) (07/07/17 12:00) Labs Laboratory Tests Test 07/07/17 12:25 White Blood Count 7.4 TH/MM3 Red Blood Count 4.36 MIL/MM3 Hemoglobin 12.8 GM/DL Hematocrit 38.5 % Mean Corpuscular Volume 88.4 FL Mean Corpuscular Hemoglobin 29.3 PG Mean Corpuscular Hemoglobin Concent 33.2 % Red Cell Distribution Width 13.8 % Platelet Count 259 TH/MM3 Mean Platelet Volume 7.1 FL Neutrophils (%) (Auto) 54.1 % Lymphocytes (%) (Auto) 31.3 % Monocytes (%) (Auto) 6.5 % Eosinophils (%) (Auto) 6.8 % Basophils (%) (Auto) 1.3 % Neutrophils # (Auto) 4.0 TH/MM3 Lymphocytes # (Auto) 2.3 TH/MM3 Monocytes # (Auto) 0.5 TH/MM3 Eosinophils # (Auto) 0.5 TH/MM3 Basophils # (Auto) 0.1 TH/MM3 CBC Comment DIFF FINAL Differential Comment Blood Urea Nitrogen 18 MG/DL Creatinine 1.15 MG/DL Random Glucose 145 MG/DL Total Protein 7.8 GM/DL Albumin 4.1 GM/DL Calcium Level 9.1 MG/DL Alkaline Phosphatase 105 U/L Aspartate Amino Transf (AST/SGOT) 21 U/L Alanine Aminotransferase (ALT/SGPT) 37 U/L Total Bilirubin 0.3 MG/DL Sodium Level 137 MEQ/L Potassium Level 4.3 MEQ/L Chloride Level 105 MEQ/L Carbon Dioxide Level 24.1 MEQ/L Anion Gap 8 MEQ/L Estimat Glomerular Filtration Rate 66 ML/MIN Troponin I LESS THAN 0.02 NG/ML MDM Medical Decision Making Medical Screen Exam Complete: Yes Emergency Medical Condition: Yes Interpretation(s) 1316 p.m. EKG shows sinus rhythm with right bundle branch block. Last Impressions Chest X-Ray 07/07/17 1154 Signed Impressions: Service Date/Time: Friday, July 07, 2017 12:11 - CONCLUSION: No acute cardiopulmonary disease identified. Waldemar Christianson MD 1316 p.m. CBC within normal limit. CMP within normal limit. Cardiac enzymes are normal. Differential Diagnosis Differential diagnosis including musculoskeletal, angina, PA, PE, pneumothorax. Narrative Course 57-year-old male with left sided chest pain. Status post CABG one month ago. Diagnosis Primary Impression: Atypical chest pain Patient Instructions: General Instructions Additional Instructions: Continue with notations. Tylenol for pain. Follow-up with personal physician. Return if worse. Return if increasing chest pain or shortness of breath. Med/Other Pt SpecificInfo: No Change to Meds Disposition: 01 DISCHARGE HOME Condition: Stable Filiberto Middleton MD Jul 07, 2017 12:44
[2017-07-07 13:08] LABS: ANION GAP 8 MEQ/L (5-15); AST (GOT) 21 U/L (15-37); BICARBONATE 24.1 MEQ/L (21.0-32.0); BLOOD UREA NITROGEN 18 MG/DL (7-18); CHLORIDE 105 MEQ/L (98-107); GLOMERULAR FILTRATION RATE 66 ML/MIN (>89); POTASSIUM 4.3 MEQ/L (3.5-5.1); SODIUM (NA) 137 MEQ/L (136-145)
[2017-07-07 13:09] LABS: ALT (GPT) 37 U/L (12-78)
[2017-07-07 13:12] LABS: ALKALINE PHOSPHATASE 105 U/L (45-117); TOTAL BILIRUBIN ADULT 0.3 MG/DL (0.2-1.0)
--- NOTE | 2017-07-08 15:31 | EKG ---
Date Performed: 07/07/2017 Time Performed: 12:28:33 PTAGE: 57 years EKG: Sinus rhythm BORDERLINE LEFT AXIS DEVIATION RIGHT BUNDLE BRANCH BLOCK Compared to prior tracing no significant ch manisha ABNORMAL ECG PREVIOUS TRACING : 01/31/2017 12.20 DOCTOR: Ivan Emerson Interpretating Date/Time 07/08/2017 15:29:40
== END 2017-07-07 14:05 | disposition home or self-care (01) ==
LOC: NEPC 10:48
DX: R07.89 Other chest pain (principal); I45.10 Unspecified right bundle-branch block; R94.31 Abnormal electrocardiogram [ECG] [EKG]; I10 Essential (primary) hypertension; E78.5 Hyperlipidemia, unspecified; F31.9 Bipolar disorder, unspecified; K21.9 Gastro-esophageal reflux disease without esophagitis; M10.9 Gout, unspecified; E11.40 Type 2 diabetes mellitus with diabetic neuropathy, unspecified
CPT/HCPCS: 71010; 80053; 84484; 85025; 93005; 99285

== ENCOUNTER 2017-08-27 11:53 | Emergency (ER) | payer SELFPAY ==
[2017-08-27 11:54] VITALS: BP 137/78; PULSE 84; RESP 15; TEMP 98.8; O2SAT 98
[2017-08-27 13:00] LABS: BASOPHIL # 0.1 TH/MM3 (0-0.2); BASOPHIL % 1.2 % (0.0-2.0); EOSINOPHIL # 0.3 TH/MM3 (0-0.4); EOSINOPHIL % 3.1 % (0.0-4.0); HEMATOCRIT 42.2 % (39.0-51.0); HEMOGLOBIN 14.4 GM/DL (13.0-17.0); LYMPH % 29.9 % (9.0-44.0); LYMPHOCYTE # 2.5 TH/MM3 (1.0-4.8); MEAN CELL VOLUME 84.6 FL (80.0-100.0); MEAN CORPUSCULAR HEMOGLOBIN 28.9 PG (27.0-34.0); MEAN CORPUSCULAR HGB CONC 34.2 % (32.0-36.0); MEAN PLATELET VOLUME 7.5 FL (7.0-11.0); MONO % 5.7 % (0.0-8.0); MONOCYTE # 0.5 TH/MM3 (0-0.9); NEUT % 60.1 % (16.0-70.0); PLATELET COUNT 254 TH/MM3 (150-450); RED CELL DISTRIBUTION WIDTH 14.8 % (11.6-17.2); WHITE BLOOD COUNT 8.3 TH/MM3 (4.0-11.0)
[2017-08-27 13:13] LABS: INTERNATIONAL NORMALIZED RATIO 1.1 RATIO; PROTHROMBIN TIME - PATIENT 11.4 SEC (9.8-11.6)
[2017-08-27 13:17] LABS: ALBUMIN 3.8 GM/DL (3.4-5.0); ALT (GPT) 58 U/L (12-78); AST (GOT) 33 U/L (15-37); BICARBONATE 24.6 MEQ/L (21.0-32.0); BLOOD UREA NITROGEN 16 MG/DL (7-18); CALCIUM 9.1 MG/DL (8.5-10.1); CHLORIDE 106 MEQ/L (98-107); CREATININE 1.14 MG/DL (0.60-1.30); GLOMERULAR FILTRATION RATE 66 ML/MIN (>89); GLUCOSE,RANDOM 247 MG/DL (74-106); MAGNESIUM 1.8 MG/DL (1.5-2.5); SODIUM (NA) 139 MEQ/L (136-145)
--- NOTE | 2017-08-27 13:18 | RADRPT ---
EXAM DATE/TIME: 08/27/2017 13:00 [facility] COMPARISON: CHEST PA & LAT, June 10, 2015, 12:45. INDICATIONS : Left side chest pain with pressure, radiating into left shoulder and arm pit. CABG 6 weeks ago in [place]. MEDICAL HISTORY : Myocardial infarction. SURGICAL HISTORY : CABG. ENCOUNTER: Initial ACUITY: 2 days PAIN SCORE: 8/10 LOCATION: Left chest FINDINGS: PA and lateral views of the chest demonstrate the lungs to be symmetrically aerated without evidence of mass, infiltrate or effusion. The cardiomediastinal contours are unremarkable. Osseous structure s are intact. CONCLUSION: No acute disease. The patient is status post interval median sternotomy for coronary artery bypass [facility] surgery. Aries Mejia MD on August 27, 2017 at 13:16 Board Certified Radiologist. This report was verified electronically.
[2017-08-27 13:20] LABS: ALKALINE PHOSPHATASE 109 U/L (45-117); TOTAL BILIRUBIN ADULT 0.2 MG/DL (0.2-1.0); TOTAL PROTEIN 7.4 GM/DL (6.4-8.2); TROPONIN I LESS THAN 0.02 NG/ML (0.02-0.05)
--- NOTE | 2017-08-27 16:14 | EKG ---
Date Performed: 08/27/2017 Time Performed: 12:38:27 PTAGE: 57 years EKG: Sinus rhythm MARKED LEFT AXIS DEVIATION RIGHT BUNDLE BRANCH BLOCK ABNORMAL ECG PREVIOUS TRACING : 07/07/2017 12.28 Compared to prior tracing no significant change DOCTOR: Charisse Dickerson Interpretating Date/Time 08/27/2017 16:12:34
--- NOTE | 2017-08-27 17:13 | PD ---
HPI Chief Complaint: Respiratory Symptoms Time Seen by Provider: 12:17 Travel History International Travel<30 days: No Contact w/Intl Traveler<30days: No Traveled to known affect area: No History of Present Illness HPI Pt is a 57-year-old male presenting to the emergency room for evaluation of chest pain and soreness. Patient feels it feels as if he has an ice pick in the middle of his chest. Pain is worse when he takes a deep breath and coughs. He denies any fever, chills, nausea or vomiting. He reports having a CABG in May. His symptoms started 3 weeks ago. He presents today because his symptoms have exacerbated, he reports shortness of breath with exertion. He reports his pain as a 5 out of 10. PFSH Past Medical History Hx Anticoagulant Therapy: Yes (xarelto, 325 asa) Arthritis: Yes (BL hips and knees) Asthma: No Autoimmune Disease: No Bipolar Disorder: Yes Anxiety: Yes Depression: Yes Heart Rhythm Problems: No Cancer: No Cardiac Catheterization: Yes Cardiovascular Problems: Yes (STENTS 5 VESSEL BYPASS) High Cholesterol: Yes Chemotherapy: No Chest Pain: Yes Congestive Heart Failure: No COPD: No Cerebrovascular Accident: No Coronary Artery Disease: Yes Diabetes: Yes Diminished Hearing: No Endocrine: No Gastrointestinal Disorders: Yes (GERD) GERD: Yes Gout: Yes Genitourinary: No Hepatitis: No Hiatal Hernia: Yes (Umbilical) Hypertension: Yes Immune Disorder: No Implanted Vascular Access Dvce: Yes Musculoskeletal: Yes (Neck pain) Neurologic: Yes (Neuropathy,BILAT FEET AND HIPS) Psychiatric: Yes (DEPRESSION) Reproductive: No Respiratory: Yes (PNAx2) Immunizations Current: No Migraines: Yes Myocardial Infarction: Yes (07/2016) Seizures: No Thyroid Disease: No Ulcer: No Past Surgical History Abdominal Surgery: Yes (Inguinal and umbilical hernia) AICD: No Body Medical Devices: cardiac stents Cardiac Surgery: Yes (5 stents) Cholecystectomy: Yes Coronary Artery Bypass Graft: Yes (x1) Coronary Stent: Yes Oral Surgery: Yes Pacemaker: No Tonsillectomy: Yes Other Surgery: Yes (Cyst removed posterior neck) Social History Alcohol Use: Yes (VERY RARE) Tobacco Use: No ("QUIT 05/19/17") Substance Use: No (HX of) Allergies-Medications (Allergen,Severity, Reaction): Coded Allergies: acetaminophen (Unverified Allergy, Severe, Itching at high doses, 07/07/17 ) hydrocodone (Unverified Allergy, Severe, Itching at high doses, 07/07/17) penicillin G (Unverified Allergy, Severe, Anaphylaxis, 07/07/17) codeine (Unverified Allergy, Intermediate, Nose itches, 07/07/17) Sulfa (Sulfonamide Antibiotics) (Unverified Adverse Reaction, Severe, Sores in mouth, 07/07/17) amlodipine (Unverified Adverse Reaction, Severe, Back pain, muscle cramps , 07/07/17) atorvastatin (Unverified Adverse Reaction, Severe, Back pain, muscle cramps, 07/07/17) pravastatin (Unverified Adverse Reaction, Severe, Back pain, muscle cramps , 07/07/17) simvastatin (Unverified Adverse Reaction, Severe, Back pain, muscle cramps , 07/07/17) Reported Meds & Prescriptions Reported Meds & Active Scripts Active Bactrim DS (Sulfamethoxazole-Trimethoprim) 800-160 Mg Tab 1 Tab PO BID Keflex (Cephalexin) 500 Mg Cap 500 Mg PO Q12H 7 Days Reported Aspirin 325 Mg Tab 325 Mg PO DAILY Xarelto (Rivaroxaban) 15 Mg Tab 15 Mg PO Q12HR Metformin (Metformin HCl) 1,000 Mg Tab 1,000 Mg PO BIDPC Metoprolol Tartrate 25 Mg Tab 25 Mg PO BID Allopurinol 100 Mg Tab 100 Mg PO DAILY Protonix (Pantoprazole Sodium) 40 Mg Tab 40 Mg PO DAILY Cymbalta DR (Duloxetine HCl) 60 Mg Capdr 60 Mg PO DAILY Review of Systems Except as stated in HPI: all other systems reviewed are Neg Cardiovascular: Positive: Chest Pain or Discomfort Respiratory: Positive: Shortness of Breath Physical Exam Narrative GENERAL: Overweight, alert male. Presenting in no acute distress. SKIN: Warm and dry. HEAD: Normocephalic. EYES: No scleral icterus. No injection or drainage. NECK: Supple, trachea midline. No JVD or lymphadenopathy. CARDIOVASCULAR: Regular rate. RESPIRATORY: No accessory muscle use. Data Data Last Documented VS Vital Signs Date Time Temp Pulse Resp B/P (MAP) Pulse Ox O2 Delivery O2 Flow Rate FiO2 08/27/17 17:33 08/27/17 11:54 98.8 84 15 98 Orders Orders Complete Blood Count With Diff (08/27/17 12:20) Comprehensive Metabolic Panel (08/27/17 12:20) B-Type Natriuretic Peptide (08/27/17 12:20) Act Partial Throm Time (Ptt) (08/27/17 12:20) Prothrombin Time / Inr (Pt) (08/27/17 12:20) Magnesium (Mg) (08/27/17 12:20) Ckmb (Isoenzyme) Profile (08/27/17 12:20) Troponin I (08/27/17 12:20) Electrocardiogram (08/27/17 12:20) Chest, Pa & Lat (08/27/17 12:20) CKMB (08/27/17 12:30) CKMB% (08/27/17 12:30) Labs Laboratory Tests Test 08/27/17 12:30 White Blood Count 8.3 TH/MM3 Red Blood Count 5.00 MIL/MM3 Hemoglobin 14.4 GM/DL Hematocrit 42.2 % Mean Corpuscular Volume 84.6 FL Mean Corpuscular Hemoglobin 28.9 PG Mean Corpuscular Hemoglobin Concent 34.2 % Red Cell Distribution Width 14.8 % Platelet Count 254 TH/MM3 Mean Platelet Volume 7.5 FL Neutrophils (%) (Auto) 60.1 % Lymphocytes (%) (Auto) 29.9 % Monocytes (%) (Auto) 5.7 % Eosinophils (%) (Auto) 3.1 % Basophils (%) (Auto) 1.2 % Neutrophils # (Auto) 5.0 TH/MM3 Lymphocytes # (Auto) 2.5 TH/MM3 Monocytes # (Auto) 0.5 TH/MM3 Eosinophils # (Auto) 0.3 TH/MM3 Basophils # (Auto) 0.1 TH/MM3 CBC Comment DIFF FINAL Differential Comment Prothrombin Time 11.4 SEC Prothromb Time International Ratio 1.1 RATIO Activated Partial Thromboplast Time 32.0 SEC Blood Urea Nitrogen 16 MG/DL Creatinine 1.14 MG/DL Random Glucose 247 MG/DL Total Protein 7.4 GM/DL Albumin 3.8 GM/DL Calcium Level 9.1 MG/DL Magnesium Level 1.8 MG/DL Alkaline Phosphatase 109 U/L Aspartate Amino Transf (AST/SGOT) 33 U/L Alanine Aminotransferase (ALT/SGPT) 58 U/L Total Bilirubin 0.2 MG/DL Sodium Level 139 MEQ/L Potassium Level 4.3 MEQ/L Chloride Level 106 MEQ/L Carbon Dioxide Level 24.6 MEQ/L Anion Gap 8 MEQ/L Estimat Glomerular Filtration Rate 66 ML/MIN Total Creatine Kinase 106 U/L Creatine Kinase MB 1.4 NG/ML Troponin I LESS THAN 0.02 NG/ML B-Type Natriuretic Peptide 31 PG/ML MDM Medical Decision Making Medical Screen Exam Complete: Yes Emergency Medical Condition: Yes Interpretation(s) Vital Signs Date Time Temp Pulse Resp B/P (MAP) Pulse Ox O2 Delivery O2 Flow Rate FiO2 08/27/17 17:33 08/27/17 11:54 98.8 84 15 137/78 (97 98 Differential Diagnosis ACS vs CHF vs [place] vs other Narrative Course Patient is a 57-year-old male presenting to the emergency department for evaluation of chest pain or shortness of breath. Patient is well-appearing, his vital signs are stable. Patient was protocol in triage. Patient is awaiting bed placement Patient presented to the triage desk, he stated that he did not want to stay any longer and weight, he will was encouraged to wait and be evaluated, he further decline. Patient left AMA Patient Mello Mckeon has decided to leave the hospital against medical advice. This patient has the capacity to refuse care and understands the risks of leaving, including permanent disability and/or , and has had an opportunity to ask questions about his condition. The patient has been informed that he may return for care at any time, and follow up has been arranged/ advised. Diagnosis Primary Impression: Left against medical advice Shy Hall Aug 27, 2017 17:13
== END 2017-08-27 17:20 | disposition left against medical advice (07) ==
LOC: NED 11:53
DX: R07.9 Chest pain, unspecified (principal); R06.02 Shortness of breath; E78.00 Pure hypercholesterolemia, unspecified; E11.9 Type 2 diabetes mellitus without complications; I25.10 Atherosclerotic heart disease of native coronary artery without angina pectoris; I10 Essential (primary) hypertension; I25.2 Old myocardial infarction; Z79.01 Long term (current) use of anticoagulants; Z79.84 Long term (current) use of oral hypoglycemic drugs; Z79.899 Other long term (current) drug therapy; Z87.891 Personal history of nicotine dependence
CPT/HCPCS: 71046; 80053; 82550; 82552; 83735; 83880; 84484; 85025; 85610; 85730; 93005; 99284

== ENCOUNTER 2017-10-03 15:45 | Emergency (ER) | payer SELFPAY ==
[~2017-10-03] VITALS: Ht 185.4 cm; Wt 130.0 kg
[2017-10-03 15:55] VITALS: BP 151/83; PULSE 88; RESP 16; TEMP 97.8; O2SAT 96
[2017-10-03] MEDS ORDERED: GLIM1TAB PO (16:29)
[2017-10-03] MEDS ORDERED: AMLO5TAB2 PO (16:29)
[2017-10-03] MEDS ORDERED: OMEP40CA2 (16:29)
--- NOTE | 2017-10-03 16:52 | RADRPT ---
EXAM DATE/TIME: 10/03/2017 16:41 [facility] COMPARISON: No previous studies available for comparison. INDICATIONS : Trauma. Trip and fall. RADIATION DOSE: 64.74 CTDIvol (mGy) MEDICAL HISTORY : Myocardial infarction. Gastroesophageal reflux disease. Diabetes mellitus type 2.Hypertension. SURGICAL HISTORY : CABG Cholecystectomy. ENCOUNTER: Initial ACUITY: 1 day PAIN SCALE: 0/10 LOCATION: cranial TECHNIQUE: Multiple contiguous axial images were obtained of the head. Using automated exposure control and adj ustment of the mA and/or kV according to patient size, radiation dose was kept as low as reasonably a chievable to obtain optimal diagnostic quality images. DICOM format image data is available electro nically for review and comparison. FINDINGS: CEREBRUM: The ventricles are normal for age. No evidence of midline shift, mass lesion, hemorrhage or acute in farction. No extra-axial fluid collections are seen. POSTERIOR FOSSA: The cerebellum and brainstem are intact. The 4th ventricle is midline. The cerebellopontine angle i s unremarkable. EXTRACRANIAL: The visualized portion of the orbits is intact. SKULL: The calvaria is intact. No evidence of skull fracture. CONCLUSION: Normal examination. Florentin Maddox MD on October 03, 2017 at 16:49 Board Certified Radiologist. This report was verified electronically.
--- NOTE | 2017-10-03 17:22 | RADRPT ---
EXAM DATE/TIME: 10/03/2017 16:47 [facility] COMPARISON: No previous studies available for comparison. INDICATIONS : Right elbow pain on medial side after fall. MEDICAL HISTORY : Diabetes mellitus type 2. Myocardial infarction. Gastroesophageal reflux disease. Hypertension. SURGICAL HISTORY : Cholecystectomy. Inguinal hernia repair.Umbilical hernia repair.CABG. bypass x5. ENCOUNTER: Initial ACUITY: 1 day PAIN SCORE: 10/10 LOCATION: Right elbow FINDINGS: There is a subtle lucent line seen propagating longitudinally through the medial aspect of the corono id process seen on one of the oblique views of the elbow. This could be a hairline fracture, however no joint effusion is clearly identified. Mineralization alignment are otherwise satisfactory. Nonacut e ossific density is seen along the lateral joint line may be dystrophic or remote traumatic. CONCLUSION: Possible hairline fracture of the coronoid Florentin Maddox MD on October 03, 2017 at 17:17 Board Certified Radiologist. This report was verified electronically.
--- NOTE | 2017-10-03 17:23 | RADRPT ---
EXAM DATE/TIME: 10/03/2017 16:47 [facility] COMPARISON: CHEST PA & LAT, August 27, 2017, 13:00. INDICATIONS : Chest pain after fall. MEDICAL HISTORY : Diabetes mellitus type 2. Myocardial infarction. Gastroesophageal reflux disease. Hypertension. SURGICAL HISTORY : Cholecystectomy. Inguinal hernia repair.Umbilical hernia repair. CABG. 5x bypass. ENCOUNTER: Initial ACUITY: 1 day PAIN SCORE: 5/10 LOCATION: Bilateral chest FINDINGS: PA and lateral views of the chest demonstrate the lungs to be symmetrically aerated without evidence of mass, infiltrate or effusion. Postsurgical changes from prior CABG are noted. The cardiomediastin al contours are unremarkable. Osseous structures are intact. CONCLUSION: No acute disease. Evidence of previous CABG. Mario Williamson MD on October 03, 2017 at 17:20 Board Certified Radiologist. This report was verified electronically.
--- NOTE | 2017-10-03 17:32 | RADRPT ---
EXAM DATE/TIME: 10/03/2017 16:47 [facility] COMPARISON: No previous studies available for comparison. INDICATIONS : Right shoulder pain in joint area after fall. MEDICAL HISTORY : Diabetes mellitus type 2. Myocardial infarction. Gastroesophageal reflux disease. Hypertension. SURGICAL HISTORY : Cholecystectomy. Inguinal hernia repair.Umbilical hernia repair.CABG. 5x bypass. ENCOUNTER: Initial ACUITY: 1 day PAIN SCORE: 8/10 LOCATION: Right shoulder FINDINGS: Multiple view examination of the right shoulder demonstrates no evidence of fracture or dislocation. The glenohumeral and acromioclavicular joints are maintained. There is normal range of motion betwe en internal and external rotation. Bony mineralization is normal. CONCLUSION: No acute disease. Mario Williamson MD on October 03, 2017 at 17:30 Board Certified Radiologist. This report was verified electronically.
--- NOTE | 2017-10-03 17:34 | RADRPT ---
EXAM DATE/TIME: 10/03/2017 16:47 [facility] COMPARISON: No previous studies available for comparison. INDICATIONS : Right knee pain on lateral side after fall. MEDICAL HISTORY : Diabetes mellitus type 2. Myocardial infarction. Gastroesophageal reflux disease. Hypertension. SURGICAL HISTORY : Cholecystectomy. Inguinal hernia repair.Umbilical hernia repair.CABG. bypass x5. ENCOUNTER: Initial ACUITY: 1 day PAIN SCORE: 3/10 LOCATION: Right knee FINDINGS: Four view examination of the right knee demonstrates no evidence of fracture or dislocation. Mild art hropathy is seen in the patellofemoral joint. Bony mineralization is normal. The articular surfaces are intact. The suprapatellar soft tissues have a normal configuration. CONCLUSION: Mild arthropathy of the patellofemoral joint. No evidence of acute fracture, soft tissue swelling or significant joint effusion. Mario Williamson MD on October 03, 2017 at 17:32 Board Certified Radiologist. This report was verified electronically.
--- NOTE | 2017-10-03 17:34 | RADRPT ---
EXAM DATE/TIME: 10/03/2017 16:47 [facility] COMPARISON: No previous studies available for comparison. INDICATIONS : Right hip pain after fall. MEDICAL HISTORY : Diabetes mellitus type 2. Myocardial infarction. Gastroesophageal reflux disease. Hypertension. SURGICAL HISTORY : Cholecystectomy. Inguinal hernia repair.Umbilical hernia repair.CABG. bypass x5. ENCOUNTER: Initial ACUITY: 1 day PAIN SCORE: 7/10 LOCATION: Right hip FINDINGS: Examination of the right hip was performed with AP Pelvis. The hip is intact without evidence of frac ture or dislocation. Mild arthropathy with joint space narrowing, subchondral sclerosis and marginal spurring is noted. CONCLUSION: Mild arthropathy. No evidence of acute fracture or dislocation. Mario Williamson MD on October 03, 2017 at 17:31 Board Certified Radiologist. This report was verified electronically.
--- NOTE | 2017-10-03 18:41 | RADRPT ---
EXAM DATE/TIME: 10/03/2017 18:15 [place] COMPARISON: No previous studies available for comparison. INDICATIONS : Trauma. Fall. Right elbow pain. Abnormal x-ray. RADIATION DOSE: 15.00 CTDIvol (mGy) MEDICAL HISTORY : Myocardial infarction. Gastroesophageal reflux disease. Diabetes mellitus type 2.Hypertension. SURGICAL HISTORY : Cholecystectomy. CABG ENCOUNTER: Initial ACUITY: 1 day PAIN SCALE: 2/10 LOCATION: Right elbow TECHNIQUE: Volumetric scanning of the elbow was performed. Using automated exposure control and adjustment of t he mA and/or kV according to patient size, radiation dose was kept as low as reasonably achievable to obtain optimal diagnostic quality images. DICOM format image data is available electronically for r eview and comparison. FINDINGS: There is a tiny avulsion fracture of the coronoid and no dislocation. No other fractures present. The re is some soft tissue swelling posterior to the elbow joint and along the posterior forearm. CONCLUSION: 1. Tiny avulsion fracture of the coronoid. No dislocation. No other fractures. Steven Mendiola MD on October 03, 2017 at 18:34 Board Certified Radiologist. This report was verified electronically.
--- NOTE | 2017-10-03 18:57 | PD ---
HPI Chief Complaint: Fall Time Seen by Provider: 16:18 Travel History International Travel<30 days: No Contact w/Intl Traveler<30days: No Traveled to known affect area: No History of Present Illness HPI This is a 57-year-old male who presents for evaluation of injuries after a fall. The patient tripped this afternoon and fell onto his right side. He is not sure if he hit his head but he did not have loss of consciousness or head pain. No neck or back pain. He complains of mild pain in the right shoulder, elbow, knee and hip. He is able to bear weight. He has abrasions on the posterior aspect of the right arm. Tetanus immunization is up-to-date. Symptoms are mild in severity. Sore in nature. Aggravated by movement. He has been otherwise well recently without fever, chills, cough, congestion, vomiting, diarrhea. No chest pain or shortness of breath. This was not a syncopal episode. Patient is on anticoagulation. Patient has been able to ambulate since the fall. Patient is right-hand dominant. PFSH Past Medical History Hx Anticoagulant Therapy: Yes (xarelto, 325 asa) Arthritis: Yes (BL hips and knees) Asthma: No Autoimmune Disease: No Bipolar Disorder: Yes Anxiety: Yes Depression: Yes Heart Rhythm Problems: No Cancer: No Cardiac Catheterization: Yes Cardiovascular Problems: Yes High Cholesterol: Yes Chemotherapy: No Chest Pain: Yes Congestive Heart Failure: No COPD: No Cerebrovascular Accident: No Coronary Artery Disease: Yes Diabetes: Yes Patient Takes Glucophage: No Diminished Hearing: No Endocrine: No Gastrointestinal Disorders: Yes (GERD) GERD: Yes Gout: Yes Genitourinary: No Hepatitis: No Hiatal Hernia: Yes (Umbilical) Hypertension: Yes Immune Disorder: No Implanted Vascular Access Dvce: Yes Musculoskeletal: Yes (Neck pain) Neurologic: Yes (Neuropathy,BILAT FEET AND HIPS) Psychiatric: Yes (DEPRESSION) Reproductive: No Respiratory: Yes (PNAx2) Immunizations Current: No Migraines: Yes Myocardial Infarction: Yes (07/2016) Seizures: No Thyroid Disease: No Ulcer: No Influenza Vaccination: No Past Surgical History Abdominal Surgery: Yes (Inguinal and umbilical hernia) AICD: No Body Medical Devices: cardiac stents Cardiac Surgery: Yes (5 stents) Cholecystectomy: Yes Coronary Artery Bypass Graft: Yes (X5) Coronary Stent: Yes Oral Surgery: Yes Pacemaker: No Tonsillectomy: Yes Other Surgery: Yes (Cyst removed posterior neck) Family History Family Myocardial Infarction: Yes (brother ) Social History Alcohol Use: Yes (VERY RARE) Tobacco Use: Yes Substance Use: No Allergies-Medications (Allergen,Severity, Reaction): Coded Allergies: acetaminophen (Unverified Allergy, Severe, Itching at high doses, 10/03/17) hydrocodone (Unverified Allergy, Severe, Itching at high doses, 10/03/17) penicillin G (Unverified Allergy, Severe, Anaphylaxis, 10/03/17) codeine (Unverified Allergy, Intermediate, Nose itches, 10/03/17) Sulfa (Sulfonamide Antibiotics) (Unverified Adverse Reaction, Severe, Sores in mouth, 10/03/17) amlodipine (Unverified Adverse Reaction, Severe, Back pain, muscle cramps , 10/03/17) atorvastatin (Unverified Adverse Reaction, Severe, Back pain, muscle cramps, 10/03/17) pravastatin (Unverified Adverse Reaction, Severe, Back pain, muscle cramps , 10/03/17) simvastatin (Unverified Adverse Reaction, Severe, Back pain, muscle cramps , 10/03/17) Reported Meds & Prescriptions Reported Meds & Active Scripts Active Reported Amlodipine (Amlodipine Besylate) 5 Mg Tab 5 Mg PO DAILY Glimepiride 1 Mg Tab 1 Mg PO BID Take with breakfast or first main meal Omeprazole 40 Mg Cap 40 Mg DAILY Aspirin 325 Mg Tab 325 Mg PO DAILY Xarelto (Rivaroxaban) 15 Mg Tab 15 Mg PO Q12HR Metoprolol Tartrate 25 Mg Tab 50 Mg PO BID Allopurinol 100 Mg Tab 100 Mg PO DAILY Cymbalta DR (Duloxetine HCl) 60 Mg Capdr 60 Mg PO DAILY Review of Systems Except as stated in HPI: all other systems reviewed are Neg Physical Exam Narrative GENERAL: Alert, well nourished, well appearing patient resting on the bed in no acute distress. Vital Signs reviewed SKIN: Focused skin assessment warm/dry. Multiple abrasions on posterior aspect of right arm. No lacerations amenable to suturing. HEAD: Atraumatic. Normocephalic. EYES: Pupils equal and round. No scleral icterus. No injection or drainage. ENT: No nasal bleeding or discharge. Mucous membranes pink and moist. NECK: Trachea midline. No JVD. Spontaneous, painless full range of motion with no meningismus. No midline tenderness to palpation along cervical, thoracic or lumbar spine CARDIOVASCULAR: Regular rate and rhythm. No murmur appreciated. Extremities warm and well perfused with bounding peripheral pulses RESPIRATORY: No accessory muscle use. Clear to auscultation. Breath sounds equal bilaterally. Breathing easily and speaking in full sentences GASTROINTESTINAL: Abdomen soft, non-tender, nondistended. Normal bowel sounds. No rigid, rebound, guarding MUSCULOSKELETAL: No obvious deformities. No clubbing. No cyanosis. No edema. Compartments are soft. Right upper extremity: Patient complains of mild pain with lifting right arm overhead. Mild tenderness at right elbow. Patient does have spontaneous full range of motion of right elbow. Painless range of motion of right wrist and hand. Compartments are soft and entire right upper extremity. Bounding right radial pulse. Sensation intact and entire right upper extremity. Right lower; patient has mild tenderness at right lateral hip but does have full range of motion of right hip. He has full range of motion of right knee with mild tenderness on the lateral aspect. Painless full range of motion of right ankle. Compartments are soft in entire right lower extremity. Bounding right DP pulse. Sensation intact and entire right lower extremity. NEUROLOGICAL: Awake and alert. No obvious cranial nerve deficits. Motor grossly within normal limits. Normal speech. Sensation intact. Normal gait Data Data Last Documented VS Vital Signs Date Time Temp Pulse Resp B/P (MAP) Pulse Ox O2 Delivery O2 Flow Rate FiO2 10/03/17 15:55 97.8 88 16 151/83 (105) 96 Orders Orders Elbow, Complete (4 Vws) (10/03/17 16:26) Hip, Uni(Ap&Lat) W Ap Pelvis (10/03/17 16:26) Knee, Complete (4vws) (10/03/17 16:26) Shoulder, Complete (>2vws) (10/03/17 16:26) Ct Brain W/O Iv Contrast(Rout) (10/03/17 16:26) Chest, Pa & Lat (10/03/17 16:26) Wound Care (10/03/17 16:26) Ct Elbow W/O Contrast (10/03/17 ) Support Splint (10/03/17 18:52) Ed Discharge Order (10/03/17 18:57) Sling Cradle Arm (10/03/17 ) MDM Medical Decision Making Medical Screen Exam Complete: Yes Emergency Medical Condition: Yes Medical Record Reviewed: Yes Interpretation(s) Last 24 hours Impressions Shoulder X-Ray 10/03/171625 Signed Impressions: Service Date/Time: September 16:47 - CONCLUSION: No acute disease. Mario Williamson MD Knee X-Ray 10/03/171625 Signed Impressions: Service Date/Time: September 16:47 - CONCLUSION: Mild arthropathy of the patellofemoral joint. No evidence of acute fracture, soft tissue swelling or significant joint effusion. Mario Williamson MD Hip and Pelvis X-Ray 10/03/171625 Signed Impressions: Service Date/Time: September 16:47 - CONCLUSION: Mild arthropathy. No evidence of acute fracture or dislocation. Mario Williamson MD Head CT 10/03/171625 Signed Impressions: Service Date/Time: September 16:41 - CONCLUSION: Normal examination. Florentin Maddox MD Elbow X-Ray 10/03/171625 Signed Impressions: Service Date/Time: September 16:47 - CONCLUSION: Possible hairline fracture of the coronoid Florentin Maddox MD Chest X-Ray 10/03/171625 Signed Impressions: Service Date/Time: September 16:47 - CONCLUSION: No acute disease. Evidence of previous CABG. Mario Williamson MD CT of the right elbow shows tiny avulsion fracture of the coronoid. No dislocation. No other fractures Differential Diagnosis Abrasion, contusion, sprain, fracture Narrative Course Patient's tetanus is up-to-date. He is neurovascularly intact. He has no lacerations or evidence of open fractures. Wound care was provided. Patient has a small avulsion fracture. Given his extensive abrasions on the posterior aspect of the right arm, he was placed in a sling. I feel that a splint would put him at increased risk for wound infection. He was counseled regarding the results of his workup. Patient was given a prescription for Harvard. He states that he is not allergic to this and tolerates it well. Plan for discharge with supportive care and close outpatient follow-up. Patient understands the importance of close outpatient follow-up. He understands he may require further testing and treatment as an outpatient. He understands strict return indications. He is comfortable with this plan and eager to go home. Diagnosis Primary Impression: Elbow fracture, right Qualified Codes: S42.401A - Unspecified fracture of lower end of right humerus , initial encounter for closed fracture Additional Impression: Abrasions of multiple sites Referrals: Benson Kathleen MD 1 week Primary Care Physician 3 days Patient Instructions: Abrasion (ED), Elbow Fracture (ED), General Instructions Additional Instructions: Keep abrasions clean and dry. Use Lortab for severe pain. No alcohol or driving after this medication. Apply antibiotic ointment twice a day. Use sling as directed. Follow up with orthopedic surgeon. Call in the morning to make an appointment. Follow up closely with primary physician. Return with worsening symptoms. Med/Other Pt SpecificInfo: Prescription(s) given Scripts Hydrocodone-Acetaminophen (Harvard) 5 Mg-325 Mg Tab 1 TAB PO Q8HR Y for PAIN, #12 TAB 0 Refills Prov: Reva Madison MD 10/03/17 Disposition: 01 DISCHARGE HOME Condition: Stable Reva Madison MD Oct 03, 2017 18:57
[2017-10-03] MEDS ORDERED: NORC5TAB PO (19:20)
== END 2017-10-03 20:03 | disposition home or self-care (01) ==
LOC: PHED 15:45
DX: S42.401A Unspecified fracture of lower end of right humerus, initial encounter for closed fracture (principal); S40.811A Abrasion of right upper arm, initial encounter; I10 Essential (primary) hypertension; I25.10 Atherosclerotic heart disease of native coronary artery without angina pectoris; I25.2 Old myocardial infarction; E78.00 Pure hypercholesterolemia, unspecified; E11.9 Type 2 diabetes mellitus without complications; K21.9 Gastro-esophageal reflux disease without esophagitis; F31.9 Bipolar disorder, unspecified; F41.9 Anxiety disorder, unspecified; W01.0XXA Fall on same level from slipping, tripping and stumbling without subsequent striking against object, initial encounter; Z95.5 Presence of coronary angioplasty implant and graft; Z95.1 Presence of aortocoronary bypass graft; Z72.0 Tobacco use; Z88.2 Allergy status to sulfonamides; Z88.0 Allergy status to penicillin; Z88.8 Allergy status to other drugs, medicaments and biological substances; Z79.01 Long term (current) use of anticoagulants; Z79.899 Other long term (current) drug therapy
CPT/HCPCS: 70450; 71046; 73030; 73080; 73200; 73502; 73564; 99285

== ENCOUNTER 2017-11-04 18:30 | Emergency (ER) | payer SELFPAY ==
[~2017-11-04 18:30] MED LIST changes: +AMLO5TAB2 PO; -BACT800T5 PO; -CEPH-460 PO; +GLIM1TAB PO; -METF1000 PO; +NORC5TAB PO; +OMEP40CA2; -PROT40TA PO
[2017-11-04 18:44] VITALS: BP 156/81; PULSE 103; RESP 22; TEMP 97.4; O2SAT 98
[2017-11-04 21:05] LABS: AUTOMATED NEUTROPHIL # 5.6 TH/MM3 (1.8-7.7); BASOPHIL # 0.1 TH/MM3 (0-0.2); BASOPHIL % 0.8 % (0.0-2.0); EOSINOPHIL # 0.2 TH/MM3 (0-0.4); EOSINOPHIL % 1.9 % (0.0-4.0); HEMATOCRIT 39.8 % (39.0-51.0); HEMOGLOBIN 14.3 GM/DL (13.0-17.0); LYMPH % 26.5 % (9.0-44.0); LYMPHOCYTE # 2.3 TH/MM3 (1.0-4.8); MEAN CORPUSCULAR HEMOGLOBIN 30.5 PG (27.0-34.0); MEAN CORPUSCULAR HGB CONC 35.9 % (32.0-36.0); MONO % 5.6 % (0.0-8.0); MONOCYTE # 0.5 TH/MM3 (0-0.9); NEUT % 65.2 % (16.0-70.0); PLATELET COUNT 191 TH/MM3 (150-450); RED BLOOD COUNT 4.68 MIL/MM3 (4.50-5.90); RED CELL DISTRIBUTION WIDTH 15.9 % (11.6-17.2); WHITE BLOOD COUNT 8.5 TH/MM3 (4.0-11.0)
[2017-11-04 21:08] LABS: BILIRUBIN, URINE NEG (NEG); BLOOD, URINE NEG (NEG); GLUCOSE,URINE 1000 mg/dL (NEG); KETONE, URINE NEG (NEG); NITRITE,URINE NEG (NEG); URINE COLOR LIGHT-YELLOW (YELLW/STRAW); URINE LEUKOCYTE ESTERASE NEG (NEG)
[2017-11-04 21:34] LABS: ALBUMIN 3.9 GM/DL (3.4-5.0); ALKALINE PHOSPHATASE 125 U/L (45-117); ALT (GPT) 52 U/L (12-78); AST (GOT) 32 U/L (15-37); BLOOD UREA NITROGEN 25 MG/DL (7-18); CALCIUM 9.5 MG/DL (8.5-10.1); CHLORIDE 98 MEQ/L (98-107); CREATININE 1.47 MG/DL (0.60-1.30); GLOMERULAR FILTRATION RATE 49 ML/MIN (>89); SODIUM (NA) 133 MEQ/L (136-145); TOTAL BILIRUBIN ADULT 0.3 MG/DL (0.2-1.0); TOTAL PROTEIN 7.3 GM/DL (6.4-8.2)
[2017-11-04 21:36] LABS: GLUCOSE,RANDOM 515 MG/DL (74-106)
--- NOTE | 2017-11-05 11:39 | PD ---
HPI Chief Complaint: Diabetic Time Seen by Provider: 18:44 Travel History International Travel<30 days: No Contact w/Intl Traveler<30days: No Traveled to known affect area: No History of Present Illness HPI 57-year-old male with history of diabetes presents emergency department for evaluation of elevated blood glucose. Patient states he has been out of his medications for 2 weeks. States he has been more thirsty and voiding frequently. Check his sugar this evening and his machine did not register. He states it reads up to 600. Denies any nausea vomiting. No fever chills. States he has felt more tired than usual. No other symptoms to report. PFSH Past Medical History Hx Anticoagulant Therapy: Yes (xarelto, 325 asa) Arthritis: Yes (BL hips and knees) Asthma: No Autoimmune Disease: No Bipolar Disorder: Yes Anxiety: Yes Depression: Yes Heart Rhythm Problems: No Cancer: No Cardiac Catheterization: Yes Cardiovascular Problems: Yes (HTN) High Cholesterol: Yes Chemotherapy: No Chest Pain: Yes Congestive Heart Failure: No COPD: No Cerebrovascular Accident: No Coronary Artery Disease: Yes Diabetes: Yes Diminished Hearing: No Endocrine: No Gastrointestinal Disorders: Yes (GERD) GERD: Yes Gout: Yes Genitourinary: No Hepatitis: No Hiatal Hernia: Yes (Umbilical) Hypertension: Yes Immune Disorder: No Implanted Vascular Access Dvce: Yes Musculoskeletal: Yes (Neck pain) Neurologic: Yes (Neuropathy,BILAT FEET AND HIPS) Psychiatric: Yes (DEPRESSION) Reproductive: No Respiratory: Yes (PNAx2) Immunizations Current: No Migraines: Yes Myocardial Infarction: Yes (07/2016) Seizures: No Thyroid Disease: No Ulcer: No Past Surgical History Abdominal Surgery: Yes (Inguinal and umbilical hernia) AICD: No Body Medical Devices: cardiac stents Cardiac Surgery: Yes (5 stents) Cholecystectomy: Yes Coronary Artery Bypass Graft: Yes (X5) Coronary Stent: Yes Oral Surgery: Yes Pacemaker: No Tonsillectomy: Yes Other Surgery: Yes (Cyst removed posterior neck) Social History Alcohol Use: Yes (VERY RARE) Tobacco Use: Yes Substance Use: No Allergies-Medications (Allergen,Severity, Reaction): Coded Allergies: acetaminophen (Unverified Allergy, Severe, Itching at high doses, 10/03/17) hydrocodone (Unverified Allergy, Severe, Itching at high doses, 10/03/17) penicillin G (Unverified Allergy, Severe, Anaphylaxis, 10/03/17) codeine (Unverified Allergy, Intermediate, Nose itches, 10/03/17) Sulfa (Sulfonamide Antibiotics) (Unverified Adverse Reaction, Severe, Sores in mouth, 10/03/17) amlodipine (Unverified Adverse Reaction, Severe, Back pain, muscle cramps , 10/03/17) atorvastatin (Unverified Adverse Reaction, Severe, Back pain, muscle cramps, 10/03/17) pravastatin (Unverified Adverse Reaction, Severe, Back pain, muscle cramps , 10/03/17) simvastatin (Unverified Adverse Reaction, Severe, Back pain, muscle cramps , 10/03/17) Reported Meds & Prescriptions Reported Meds & Active Scripts Active [place] (Hydrocodone-Acetaminophen) 5 Mg-325 Mg Tab 1 Tab PO Q8HR PRN Reported Amlodipine (Amlodipine Besylate) 5 Mg Tab 5 Mg PO DAILY Glimepiride 1 Mg Tab 1 Mg PO BID Take with breakfast or first main meal Omeprazole 40 Mg Cap 40 Mg DAILY Aspirin 325 Mg Tab 325 Mg PO DAILY Xarelto (Rivaroxaban) 15 Mg Tab 15 Mg PO Q12HR Metoprolol Tartrate 25 Mg Tab 50 Mg PO BID Allopurinol 100 Mg Tab 100 Mg PO DAILY Cymbalta DR (Duloxetine HCl) 60 Mg Capdr 60 Mg PO DAILY Review of Systems Except as stated in HPI: all other systems reviewed are Neg Physical Exam Narrative Well-nourished male patient. Ambulatory with a non-ataxic gait. He appears nontoxic. Even respirations. Tachycardic heart rate. No obvious deformities. Patient speaks clearly. Data Data Last Documented VS Vital Signs Date Time Temp Pulse Resp B/P (MAP) Pulse Ox O2 Delivery O2 Flow Rate FiO2 11/04/17 18:44 97.4 103 22 156/81 (106) 98 Orders Orders Complete Blood Count With Diff (11/04/17 18:47) Comprehensive Metabolic Panel (11/04/17 18:47) Beta Hydroxybutyrate (Acetone) (11/04/17 18:47) Urinalysis - C+S If Indicated (11/04/17 18:47) Labs Laboratory Tests Test 11/04/17 20:25 11/04/17 20:30 Urine Color LIGHT-YELLOW Urine Turbidity CLEAR Urine pH 5.0 Urine Specific [place] 1.027 Urine Protein NEG mg/dL Urine Glucose (UA) 1000 mg/dL Urine Ketones NEG mg/dL Urine Occult Blood NEG Urine Nitrite NEG Urine Bilirubin NEG Urine Urobilinogen LESS THAN 2.0 MG/DL Urine Leukocyte Esterase NEG Urine WBC LESS THAN 1 /hpf Microscopic Urinalysis Comment CULT NOT INDICATED White Blood Count 8.5 TH/MM3 Red Blood Count 4.68 MIL/MM3 Hemoglobin 14.3 GM/DL Hematocrit 39.8 % Mean Corpuscular Volume 85.0 FL Mean Corpuscular Hemoglobin 30.5 PG Mean Corpuscular Hemoglobin Concent 35.9 % Red Cell Distribution Width 15.9 % Platelet Count 191 TH/MM3 Mean Platelet Volume 8.0 FL Neutrophils (%) (Auto) 65.2 % Lymphocytes (%) (Auto) 26.5 % Monocytes (%) (Auto) 5.6 % Eosinophils (%) (Auto) 1.9 % Basophils (%) (Auto) 0.8 % Neutrophils # (Auto) 5.6 TH/MM3 Lymphocytes # (Auto) 2.3 TH/MM3 Monocytes # (Auto) 0.5 TH/MM3 Eosinophils # (Auto) 0.2 TH/MM3 Basophils # (Auto) 0.1 TH/MM3 CBC Comment DIFF FINAL Differential Comment Blood Urea Nitrogen 25 MG/DL Creatinine 1.47 MG/DL Random Glucose 515 MG/DL Total Protein 7.3 GM/DL Albumin 3.9 GM/DL Calcium Level 9.5 MG/DL Alkaline Phosphatase 125 U/L Aspartate Amino Transf (AST/SGOT) 32 U/L Alanine Aminotransferase (ALT/SGPT) 52 U/L Total Bilirubin 0.3 MG/DL Sodium Level 133 MEQ/L Potassium Level 4.3 MEQ/L Chloride Level 98 MEQ/L Carbon Dioxide Level 24.0 MEQ/L Anion Gap 11 MEQ/L Estimat Glomerular Filtration Rate 49 ML/MIN B-Hydroxybutyrate 0.23 MMOL/L [facility] Medical Decision Making Medical Screen Exam Complete: Yes Emergency Medical Condition: Yes Medical Record Reviewed: Yes Differential Diagnosis DKA versus hyperglycemia versus medication noncompliance versus electrolyte abnormality Narrative Course 57-year-old male presents to the emergency department for evaluation of elevated blood glucose. Our blood glucose monitor registers as high. Workup is initiated. Patient appears nontoxic. Prior to results and bed placement, patient chooses to leave. AMA: The risks of leaving against medical advice without further evaluation treatment were discussed with the patient. These risks include cardiac dysfunction, cardiac dysrhythmia, possible heart attack, possible stroke or . The patient indicated understanding of these risks and appeared to have the capacity to make this decision. Diagnosis Primary Impression: Hyperglycemia due to type 2 diabetes mellitus Patient Instructions: General Instructions Departure Forms: Tests/Procedures Disposition: 07 AGAINST MEDICAL ADVICE Collette Garza Nov 05, 2017 11:39
== END 2017-11-04 21:40 | disposition left against medical advice (07) ==
LOC: NED 18:30
DX: E11.65 Type 2 diabetes mellitus with hyperglycemia (principal); R00.0 Tachycardia, unspecified; M16.0 Bilateral primary osteoarthritis of hip; M17.0 Bilateral primary osteoarthritis of knee; F31.9 Bipolar disorder, unspecified; I10 Essential (primary) hypertension; E78.00 Pure hypercholesterolemia, unspecified; I25.10 Atherosclerotic heart disease of native coronary artery without angina pectoris; M10.9 Gout, unspecified
CPT/HCPCS: 80053; 81001; 82010; 85025; 99283

== ENCOUNTER 2018-01-08 11:59 | Emergency (ER) | payer SELFPAY ==
[~2018-01-08] VITALS: Ht 188 cm; Wt 125.0 kg
[2018-01-08 12:10] VITALS: BP 134/71; PULSE 85; RESP 16; TEMP 98.4; O2SAT 97
--- NOTE | 2018-01-08 12:22 | PD ---
HPI Chief Complaint: Fall Time Seen by Provider: 12:15 Travel History International Travel<30 days: No Contact w/Intl Traveler<30days: No Traveled to known affect area: No History of Present Illness HPI 57-year-old male presents to the emergency department for evaluation of left knee injury. Patient states that while at work on Saturday morning, he slipped on a banana peel and fell on his left knee. Patient states that he works through his shift. However, he started having pain in the next day. He states that on Saturday night he went to [facility] when his knee gave out and he fell on his left knee again. The patient denies any head injury or LOC. No neck pain or back pain. No chest pain or abdominal pain. No vomiting. He is on Xarelto , but is adamant that he did not hit his head. Patient states the pain when his knee is still 0/10. However, if he ambulates or moves the knee, the pain goes up to 5/10, aching and throbbing without radiation. mild to moderate severity. PFSH Past Medical History Hx Anticoagulant Therapy: Yes (xarelto, 325 asa) Arthritis: Yes (BL hips and knees) Asthma: No Autoimmune Disease: No Bipolar Disorder: Yes Anxiety: Yes Depression: Yes Heart Rhythm Problems: No Cancer: No Cardiac Catheterization: Yes Cardiovascular Problems: Yes High Cholesterol: Yes Chemotherapy: No Chest Pain: Yes Congestive Heart Failure: No COPD: No Cerebrovascular Accident: No Coronary Artery Disease: Yes Diabetes: Yes Diminished Hearing: No Endocrine: No Gastrointestinal Disorders: Yes (GERD) GERD: Yes Gout: Yes Genitourinary: No Hepatitis: No Hiatal Hernia: Yes (Umbilical) Hypertension: Yes Immune Disorder: No Implanted Vascular Access Dvce: Yes Musculoskeletal: Yes (Neck pain) Neurologic: Yes (Neuropathy,BILAT FEET AND HIPS) Psychiatric: Yes (DEPRESSION) Reproductive: No Respiratory: Yes (PNAx2) Immunizations Current: No Migraines: Yes Myocardial Infarction: Yes (07/2016) Seizures: No Thyroid Disease: No Ulcer: No Past Surgical History Abdominal Surgery: Yes (Inguinal and umbilical hernia) AICD: No Body Medical Devices: cardiac stents Cardiac Surgery: Yes (5 stents) Cholecystectomy: Yes Coronary Artery Bypass Graft: Yes (X5) Coronary Stent: Yes Oral Surgery: Yes Pacemaker: No Tonsillectomy: Yes Other Surgery: Yes (Cyst removed posterior neck) Social History Alcohol Use: Yes (VERY RARE) Tobacco Use: Yes Substance Use: No Allergies-Medications (Allergen,Severity, Reaction): Coded Allergies: acetaminophen (Unverified Allergy, Severe, Itching at high doses, 01/08/18) hydrocodone (Unverified Allergy, Severe, Itching at high doses, 01/08/18) penicillin G (Unverified Allergy, Severe, Anaphylaxis, 01/08/18) codeine (Unverified Allergy, Intermediate, Nose itches, 01/08/18) Sulfa (Sulfonamide Antibiotics) (Unverified Adverse Reaction, Severe, Sores in mouth, 01/08/18) amlodipine (Unverified Adverse Reaction, Severe, Back pain, muscle cramps , 01/08/18) atorvastatin (Unverified Adverse Reaction, Severe, Back pain, muscle cramps, 01/08/18) pravastatin (Unverified Adverse Reaction, Severe, Back pain, muscle cramps , 01/08/18) simvastatin (Unverified Adverse Reaction, Severe, Back pain, muscle cramps , 01/08/18) Reported Meds & Prescriptions Reported Meds & Active Scripts Active Reported Amlodipine (Amlodipine Besylate) 5 Mg Tab 5 Mg PO DAILY Glimepiride 1 Mg Tab 1 Mg PO BID Take with breakfast or first main meal Omeprazole 40 Mg Cap 40 Mg DAILY Aspirin 325 Mg Tab 325 Mg PO DAILY Xarelto (Rivaroxaban) 15 Mg Tab 15 Mg PO Q12HR Metoprolol Tartrate 25 Mg Tab 50 Mg PO BID Allopurinol 100 Mg Tab 100 Mg PO DAILY Cymbalta DR (Duloxetine HCl) 60 Mg Capdr 60 Mg PO DAILY Review of Systems Except as stated in HPI: all other systems reviewed are Neg Physical Exam Narrative GENERAL: Well-nourished, well-developed male patient, afebrile. SKIN: Focused skin assessment warm/dry. Mild ecchymosis noted to left anterior knee. HEAD: Normocephalic. Atraumatic. EYES: No scleral icterus. No injection or drainage. NECK: Supple, trachea midline. No JVD or lymphadenopathy. CARDIOVASCULAR: Regular rate and rhythm without murmurs, gallops, or rubs. Left pedal pulses 2+. RESPIRATORY: Breath sounds equal bilaterally. No accessory muscle use. Lung sounds are clear to auscultation. GASTROINTESTINAL: Abdomen soft, non-tender, nondistended. MUSCULOSKELETAL: No cyanosis, or edema. Patient has tenderness over the left patella and slightly below the left patella. He has full flexion-extension. He has full sensation distal left lower extremity. BACK: Nontender without obvious deformity. No CVA tenderness. Data Data Last Documented VS Vital Signs Date Time Temp Pulse Resp B/P (MAP) Pulse Ox O2 Delivery O2 Flow Rate FiO2 01/08/18 12:10 98.4 85 16 134/71 (92) 97 Orders Orders Knee, Complete (4vws) (01/08/18 ) [facility] Medical Decision Making Medical Screen Exam Complete: Yes Emergency Medical Condition: Yes Medical Record Reviewed: Yes Interpretation(s) x-ray of the left knee - CONCLUSION: 1. Mild primary degenerative arthritis. 2. No acute fracture or joint dislocation. Differential Diagnosis Contusion versus fracture versus sprain Narrative Course 57-year-old male presents to the emergency department for evaluation of left knee pain after a slip and fall. X-ray of the left knee is ordered and pending. X-ray of the left knee shows Mild primary degenerative arthritis; No acute fracture or joint dislocation. Patient is provided Papo bandage. He will be discharged home. He as well as primary care physician. The patient was discharged in stable condition with instructions, including return instructions and follow up instructions. Diagnosis Primary Impression: Contusion of left knee Qualified Codes: S80.02XA - Contusion of left knee, initial encounter Referrals: Primary Care Physician call for appointment Patient Instructions: Contusion in Adults (ED), General Instructions Additional Instructions: Ice for 20 minutes 4-5 times daily. Wear Papo bandage as needed for support. Follow-up with a primary care physician. Return to the emergency department for any acute worsening of symptoms. Med/Other Pt SpecificInfo: No Change to Meds Disposition: 01 DISCHARGE HOME Condition: Stable Bianca Peter ALIA January 08, 2018 12:22
--- NOTE | 2018-01-08 13:00 | RADRPT ---
EXAM DATE: 01/08/2018 12:47 PM EDT AGE/SEX: 57 years / Male INDICATIONS: Left knee pain around patella after slipping on a banana peel. CLINICAL DATA: This is the patient's initial encounter. Patient reports that signs and symptoms have been present for 3 days and indicates a pain score of 6/10. MEDICAL/SURGICAL HISTORY: None. None. COMPARISON: No prior [facility] exams available for comparison. FINDINGS: Bony structures are intact and in normal alignment. Joints are intact without dislocation. Mild dege nerative arthritis is seen involving the knee joint. No joint effusion. Osseous density is normal. Soft tissues are unremarkable. No radiopaque foreign bodies seen. Vascular calcifications are seen i n the soft tissues. CONCLUSION: 1. Mild primary degenerative arthritis. 2. No acute fracture or joint dislocation. Electronically signed by: Bigg Negrete MD 01/08/2018 12:59 PM EDT
== END 2018-01-08 13:25 | disposition home or self-care (01) ==
LOC: NEPK 11:59
DX: S80.02XA Contusion of left knee, initial encounter (principal); I10 Essential (primary) hypertension; W01.0XXA Fall on same level from slipping, tripping and stumbling without subsequent striking against object, initial encounter; Z72.0 Tobacco use; Z79.01 Long term (current) use of anticoagulants
CPT/HCPCS: 73564; 99283